=== PATIENT | male | born 1940 | race Caucasian/White ===

== ENCOUNTER 2017-02-05 18:10 | Inpatient (IN) | payer MEDICARE, OTHER ==
[~2017-02-05] VITALS: Ht 157.4 cm; Wt 79.8 kg
--- NOTE | ~2017-02-05 | PR ---
[place], [place] PROGRESS NOTE [id number] #: [id number] ROOM: 314 DOCTOR: Rohan COPE,AMY BIRTHDATE: [birth year] DOS: 02/10/2017 The patient seen and spoke with the staff. Per staff, the patient is pleasantly confused, wanders all day. No behavioral problems or issues. Took his medication and slept all night. The patient as mentioned earlier was wandering. He told me that he needs to go to work. 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 When I told him that this is Saturday, he then said that he has to take his and take her to the store. He then also talked about losing his car [employer] and losing his wallet. The patient was redirectable, but definitely he was confused, not aware of his surroundings and repetitive about the same questions and issues. He is taking his medication regularly and did not have any side effect from the medication. MENTAL STATUS EXAMINATION: The patient was pleasant and cooperative. He was alert, but not oriented to day, date, month or the year. He described his mood as "good." Affect was broad range. Thought processes with confabulation. He denied auditory or visual hallucination. No delusion or paranoia noted. He denied suicidal ideation, intent or plan. He also denied homicidal ideation, intent or plan. Insight and judgment impaired. ASSESSMENT: 1. Alzheimer dementia with behavioral disturbances. 2. Dementia with delusion. PLAN: 1. Continue current medication and care. 2. Continue redirection. 3. Supportive care. AMY COPE MD CM:SHANT [id number] Rohan COPE 02/11/17 0105 interface
--- NOTE | ~2017-02-05 | PR ---
[place], [place] PROGRESS NOTE NAME: [facility] [id number] UN[facility] #: [id number] ROOM: 314 DOCTOR: Rohan COPE,AMY BIRTHDATE: [birth year] DOS: 02/13/2017 PSYCHIATRIC PROGRESS NOTE SUBJECTIVE: The patient seen and spoke with the staff. Per staff the patient is doing well. No p.r.n. last night, slept well, easily redirectable. The patient was pleasant, cooperative. He was in the day area. His and daughter were visiting. He was playing cards with them. He reported doing well. Denied any side effects from the medication. Does not look to be in any distress. He is pleasantly confused and forgetful. MENTAL STATUS EXAMINATION: The patient was pleasant, cooperative, described his mood as "fine." Affect, mood congruent. Thought processes with confabulation. He denied auditory or visual hallucination. No delusion or paranoia noted. He denied suicidal ideation, intent or plan. He also denied homicidal ideation, intent or plan. Insight and judgment impaired. ASSESSMENT: 1. Dementia with behavioral disturbances. 2. Dementia with delusion. PLAN: 1. Continue current medication and care. 2. Continue redirection. 3. Supportive care. AMY COPE MD CM:SHANT 55 26 Rohan COPE 02/14/171826 interface
--- NOTE | ~2017-02-05 | PR ---
[place], [place] PROGRESS NOTE NAME: JUSTIN MANLEY [facility] #: [id number] UNIT #: [id number] ROOM: 314 DOCTOR: Rohan COPE,AMY BIRTHDATE: [birth year] DOS: 02/08/2017 SUBJECTIVE: The patient seen and I spoke with the staff. Per staff, the patient was pleasant, cooperative, got agitated last night and was also combative last night. The patient was pleasant, cooperative. He asked me how I am doing. He was going in and out of different rooms. He actually followed me and came to the nursing station, but was redirectable. He is not aware of his surrounding and totally and pleasantly confused. He denied any side effect from the medication. He does not seem to be in any distress. MENTAL STATUS EXAMINATION: The patient was pleasant, cooperative. He was alert, but not oriented to day, date, month and year. Speech: Normal volume and tone. Described his mood as "fine." Affect, mood congruent. Thought processes with confabulation. Denied auditory or visual hallucination. No delusion or paranoia noted. Denies suicidal ideation, intent or plan. He also denied homicidal ideation, intent or plan. Insight and judgment impaired. ASSESSMENT: 1. Dementia with behavioral disturbances. 2. Dementia with delusion. PLAN: 1. Continue current medication. His Depakote was increased yesterday, we need to give some time to see how it is becoming effective. 2. Continued redirection. 3. Encourage activity and groups. AMY COPE MD CM:PNZOFIA 20 0 Rohan COPE 02/09/17150 interface
--- NOTE | ~2017-02-05 | PR ---
[place], [place] PROGRESS NOTE [id number] #: [id number] ROOM: 309 DOCTOR: Rohan COPE,AMY BIRTHDATE: [birth year] DOS: 02/16/2017 SUBJECTIVE: The patient seen and spoke with the staff. Per staff, the patient has slept only 3 hours. He walked on the hallway all night, but easily redirectable. No behavioral problems or issues. Med compliant. The patient was pleasant, cooperative. He was walking on the hallway. He said that he need to talk with me and pulled me aside to the interview room. He then said that he is not feeling good. He is feeling tired. When I told him that he did not sleep last night, he acknowledges and said that he probably need to sleep. He also then started talking about earache and asked me if I can examine him. I told him that I will call the medical team to come and look at his ear and make sure that nothing else is going on. MENTAL STATUS EXAMINATION: The patient was pleasantly confused gentleman, alert, not oriented to day, date, month, or year. Speech was normal volume and tone. Described his mood as "okay." Affect, mood congruent. Thought processes with confabulation. Denied auditory or visual hallucination. No delusion or paranoia noted. He denied any suicidal ideation, intent or plan. He also denied any homicidal ideation, intent or plan. Insight and judgment impaired. ASSESSMENT: 1. Alzheimer dementia with delusion. 2. Alzheimer dementia with behavioral disturbances. PLAN: 1. I will add Depakote 250 mg at 9:00 p.m. 2. Continue redirection. 3. Supportive care. AMY COPE MD CM:SHANT [phone] Rohan COPE 02/16/17 1256 interface
--- NOTE | ~2017-02-05 | PR ---
[place], [place] PROGRESS NOTE NAME: JUSTIN MANLEY [facility] #: [id number] UNIT #: [id number] ROOM: 315 DOCTOR: Rohan COPE,AMY BIRTHDATE: [birth year] DOS: 02/07/2017 SUBJECTIVE: The patient seen and spoke with the staff. Per staff, the patient got a p.r.n. Ativan at 9:15 p.m. He was irritable and angry, hard to redirect, but after he got the Ativan, he slept all through. The patient was pleasant and cooperative. He actually came from his room. He looks well groomed. He said that he is doing okay and says that he is enjoying his breakfast. He was totally unaware of the events that happened last night and also unaware of his surroundings. He is taking his medication regularly and did not have any side effect. MENTAL STATUS EXAMINATION: The patient was pleasant, cooperative. He was alert, but not oriented to day, date, month or the year or even place. He described his mood as "okay." Affect, mood congruent. Thought processes with confabulation. He denied auditory or visual hallucinations. No delusions or paranoia noted. He denied suicidal ideation, intent or plan. He also denies homicidal ideation, intent or plan. ASSESSMENT: 1. Dementia with behavioral disturbances 2. Dementia with delusion. PLAN: 1. Increase the Depakote to 500 mg twice a day. 2. Continue redirection. 3. Supportive care. AMY COPE MD CM:PNTRANS 99 Rohan COPE 02/08/1755 interface
--- NOTE | ~2017-02-05 | PR ---
[place], [place] PROGRESS NOTE [facility] [id number] #: [id number] ROOM: 314 DOCTOR: Rohan COPE,AMY BIRTHDATE: [birth year] DOS: 02/12/2017 SUBJECTIVE: The patient seen and spoke with the staff. Per staff, the patient received 2 peers last night, was combative, agitated, hard to redirect at times. The patient was in the day area. He was sleepy. He was in a chair. When I called his name, he got up and said "hi" and states that he is doing okay, but then dozed back to sleep again. MENTAL STATUS EXAMINATION: The patient was pleasant, cooperative, sleepy as he got stat medication last night. Reports doing okay. Denied auditory or visual hallucination. No overt delusion or paranoia noted. Denied suicidal ideation, intent or plan. He also denied homicidal ideation, intent or plan. ASSESSMENT: 1. Alzheimer dementia with delusion. 2. Dementia with behavioral disturbances. PLAN: 1. Continue current Abilify. 2. I will increase his bedtime Depakote to 500 mg. 3. Continue redirection. 4. Supportive care. AMY COPE MD CM:SHANT [id number] 1328 Rohan COPE 02/12/17 1328 interface
--- NOTE | ~2017-02-05 | PR ---
[place], [place] PROGRESS NOTE [id number] [facility] #: [id number] ROOM: 314 DOCTOR: Rohan COPE,AMY BIRTHDATE: [birth year] DOS: 02/14/2017 PSYCHIATRIC PROGRESS NOTE SUBJECTIVE: The patient seen and spoke with the staff. Per staff, the patient is doing well. Slept all night. No wandering out at night. Medication compliant. The patient was in his room, well groomed, said that he is doing fine. He is pleasantly confused. He was not in any distress. He denied any side effect from the medication. MENTAL STATUS EXAMINATION: The patient was pleasant, cooperative. He was alert, but not oriented to day, date, month or year. Speech was normal volume and tone. Described his mood as "okay." Affect, mood congruent. Thought processes with confabulation. He denied auditory or visual hallucination. No delusion or paranoia noted. He denied suicidal ideation, intent or plan. He also denied homicidal ideation, intent or plan. ASSESSMENT: 1. Alzheimer dementia with behavioral disturbances. 2. Alzheimer dementia with delusion. PLAN: 1. Continue current medication and care. 2. Continue redirection. 3. Discharge planning. AMY COPE MD CM:SHANT [id number] Rohan COPE 02/14/17 2308 interface
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
--- NOTE | ~2017-02-05 | PR ---
[place], [place] PROGRESS NOTE [facility]: [facility] [id number] UN[facility] #: [id number] ROOM: 314 DOCTOR: Rohan COPE,AMY BIRTHDATE: [birth year] DOS: 02/09/2017 SUBJECTIVE: The patient seen and spoke with staff. Per staff, the patient was agitated last night and going from room to room, but was redirectable. He did not get any p.r.n., but then fell asleep after multiple redirection. The patient was pleasant, cooperative. He was confused. He gave me his address multiple times. He wanted to go home. He still is going from room to room. When I told him to sit and relax, he went back and then came back up again. MENTAL STATUS EXAMINATION: The patient was pleasant, cooperative, somewhat restless. Described his mood as "____ affect". Affect, mood congruent. Thought processes with confabulation. He denied auditory or visual hallucination. No delusion or paranoia noted. He denied any suicidal ideation, intent or plan. He also denied any homicidal ideation, intent or plan. Insight and judgment impaired. ASSESSMENT: Alzheimer dementia with behavioral disturbances. PLAN: 1. Continue current medication. 2. Continue redirection. 3. Supportive care. AMY COPE MD CM:PNZOFIA 0912 1147 Rohan COPE 02/09/17 2840 interface
--- NOTE | ~2017-02-05 | PR ---
[place], [place] PROGRESS NOTE [id number] UN[facility] #: [id number] ROOM: 314 DOCTOR: Rohan COPE,AMY BIRTHDATE: [birth year] DOS: 02/11/2017 SUBJECTIVE: The patient seen and spoke with the staff. Per staff, the patient received multiple PRNs last night because he was going in and out of the patients' rooms, especially the women's room, touching them also in their hair and also in their faces. He was hard to redirect at times. The patient was pleasant, cooperative. He seems pretty happy as his and daughter came. I discussed with the family about the treatment plan and discussed the risk of dementia, the prognosis and the treatment. They verbalized understanding. The patient reports doing well. He agreed to stay a couple of days. He is pleasantly confused. Denied depressed mood or helplessness. Denied any other neurologic signs or symptoms of depression. Denied psychosis, sandy, or hypomania. MENTAL STATUS EXAMINATION: The patient was pleasant, cooperative. Described his mood as "okay." Affect, mood congruent. Thought process is with confabulation. He denied auditory or visual hallucination. No delusion or paranoia noted. He denied suicidal ideation, intent or plan. He also denied homicidal ideation, intent or plan. Insight and judgment impaired. ASSESSMENT: Alzheimer dementia with behavioral disturbances. PLAN: 1. Continue current medication. 2. Continue redirection. 3. Supportive care. AMY COPE MD CM:PNTRANS 1925 1301 Rohan COPE 02/12/17 1301 interface
--- NOTE | ~2017-02-05 | PR ---
[place], [place] PROGRESS NOTE [id number] UN[facility] #: [id number] ROOM: 309 DOCTOR: Rohan COPE,AMY BIRTHDATE: [birth year] DOS: 02/15/2017 SUBJECTIVE: The patient seen and spoke with the staff. Per staff, the patient was up all night, in and out of people's room, but easily redirectable, did not require any p.r.n. Eventually, he falls asleep around 3:30-4:00 a.m. in the morning. The patient was pleasant, cooperative. He was in the day area surrounded by his family. He looks bright and happy, not in any acute distress. Reports doing well. Pleasantly confused. MENTAL STATUS EXAMINATION: The patient was pleasant and cooperative. He was alert, but not oriented to day, date, month and year. Speech is normal volume and tone. Described her mood as mood as "good." Affect, mood congruent. Thought processes with confabulation. Denied auditory or visual hallucination. No delusion or paranoia noted. Denied suicidal ideation, intent or plan. He also denied homicidal ideation, intent or plan. Insight and judgment impaired. ASSESSMENT: Dementia with behavioral disturbances. PLAN: 1. Continue current medication and care. 2. Continue redirection. 3. Supportive care. AMY COPE MD CM:SHANT [phone] Rohan COPE 02/16/17 0524 interface
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
--- NOTE | ~2017-02-05 | PR ---
[place], [place] PROGRESS NOTE NAME: [id number] #: [id number] ROOM: 309 DOCTOR: Rohan COPE,AMY BIRTHDATE: [birth year] DOS: 02/17/2017 HISTORY OF PRESENT ILLNESS: The patient seen and spoke with the staff. Per staff, the patient was slept only 6 hours, broken sleep and he was rude and irritated towards his , so the family had to cut short the visit. He is compliant with his medication. The patient was pleasant, cooperative as usual. When he saw me, he said good morning in [place], not able to recall the event that happened yesterday. Does not seem to be in any distress. MENTAL STATUS EXAMINATION: The patient was pleasant, cooperative, pleasantly confused. Described his mood as "good." Affect, mood congruent. Thought processes is with confabulation. Denied auditory or visual hallucination. No delusion or paranoia noted. Denied suicidal ideation, intent or plan. He also denied homicidal ideation, intent or plan. Insight and judgment impaired. ASSESSMENT: 1. Alzheimer dementia with delusion. 2. Possible dementia with behavioral disturbances. PLAN: 1. We will increase his 9:00 p.m. Depakote to 500 mg. 2. Continue other medication. 3. We will check the Depakote level, CBC, differential and CMP tomorrow. 4. Continue redirection. AMY COPE MD CM:SHANT [phone] Rohan COPE 02/17/17 1025 interface
[2017-02-05] MEDS ORDERED: NAMENDA10 MG PO (18:24)
[2017-02-05] MEDS ORDERED: ARICEPT10 M1 PO (18:25)
[2017-02-05] MEDS ORDERED: LUMIGAN50 DRP OU (18:26)
--- NOTE | 2017-02-05 20:01 | NUR ---
DR. COPE CALLED AND REVIEWED PRN MEDICATIONS. NEW ORDER FOR ATIVAN 1MG PO/IM Q 4 HOURS PRN AND HALDOL 5MG PO/IM Q 8 HOURS PRN
--- NOTE | 2017-02-05 21:11 | NUR ---
THIS NURSE SPOKE TO RENNY AND DAUGHTERS MICHAELLE AND BERNIE BEFORE PT CAME ON THE UNIT. FAMILY CONCERS THAT PT WILL HAVE INCREASED AGITATION AND COMBATIVE BEHAVIOR WHEN TIRED OR WAKING UP IN A NEW ENVIROMENT. FAMILY LEFT PHONE NUMBERS WITH THIS NURSE IN CASE OF EMERGENCY
--- NOTE | 2017-02-05 21:13 | NUR ---
JUSTIN MANLEY a 76 year old M admitted via stretcher from the ADMITTING as a emergency 72 hr. hold admission. Arrived on unit at . ALLERGIES: . Vital signs are: 98.2-61-18 158/86. Admitted under the services of Dr. RIP SHERIFFGARRETT. A search was conducted and hazardous articles were removed. Client was oriented to the unit. JACQUES JACOBSEN
[2017-02-05] MEDS ORDERED: ZOCOR20 MG PO (21:31)
[2017-02-05] MEDS ORDERED: SPIRIVA18 MCG PO (21:31)
--- NOTE | 2017-02-05 21:42 | NUR ---
DR. NG CALLED AND PT PUT UNDER DR. YORK FOR MEDICAL MANAGEMENT
[2017-02-05 22:00] VITALS: BP 158/86
--- NOTE | 2017-02-05 22:42 | NUR ---
FOUR BULLETS AND TWO POCKET KNIVES FOUND ON PT WHILE EMPTYING POCKETS FROM CLOTHING PT WAS WEARING. NURSING CULINARY ARTS INSTRUCTOR UPDATED. SECURITY CALLED AND TOOK BULLETS. DR. CORBIN UPDATED. PT RESTING IN BED AT THIS TIME.
--- NOTE | 2017-02-06 03:25 | NUR ---
DR. NG ON UNIT TO SEE PT. PT UNABLE TO ANSWER QUESTIONS AT THIS TIME AND RECEIVED HALDOL AND ATIVAN PRIOR TO DISCHARGE FROM [facility] DUE TO PT AGGRESSIVE BEHAVIOR
--- NOTE | 2017-02-06 04:32 | NUR ---
24 HR chart check completed.
--- NOTE | 2017-02-06 05:22 | NUR ---
PT UP AMBULATING IN ROOM AND UNABLE TO SLEEP. PT TOILETED X 2 AND CONTINENT OF BLADDER. PT SLEEPING BETWEEN 5-6 HOURS. PT HAVE CONFUSED CONVERSATION WITH STAFF. PT NOT ABLE TO REMEMBER IF HE HAS CHILDREN. FLUIDS PROVIDED.
--- NOTE | 2017-02-06 06:50 | NUR ---
ATTEMPTED TO OBTAIN URINE SPECIMEN TO BE SENT TO LAB THROUGHOUT SHIFT. URINAL OFFERED IN ATTEMPT TO COLLECT URINE.
[2017-02-06 07:11] LABS: THYROID STIM HORMONE (HS) 0.98 uIU/ml (0.358-4.75)
[2017-02-06 08:11] VITALS: BP 140/90
[2017-02-06 08:29] LABS: VITAMIN D, 25-HYDROXY 30.9 ng/mL (30-100)
--- NOTE | 2017-02-06 10:51 | NUR ---
Treatment Team was held to discuss care with the following present: Dr. Tenorio (phone), RN,AT,SW, and Director.
--- NOTE | 2017-02-06 11:23 | NUR ---
PT was in attendence of RT group this morning. PT worried about going home, his car running, and his ride coming. PT was hard to redirect. PT did minimully participate when prompted to do so. PT shared leisure interest of playing the accordian with group
--- NOTE | 2017-02-06 14:30 | NUR ---
SW completed psychosocial assessment with E[facility] and Dtr Caroline. has [employer] and willlook for papers today and bring this evening if found. SW asked Family to consider guardianship due to being only agent on [employer]. does nto want to go against Pt's wishes of not placing him in NH. SW advised Family to begin looking at locked dementia unit at ID or locked dementia unit at Assisted Living depending on what they can afford. Family alli begin looking for facilities. Moe will submit the [facility] for placement.
--- NOTE | 2017-02-06 15:54 | NUR ---
Patient participated during recreation therapy group with 1:1 by staff. Patient was much more focused this afternoon on activity that kept him busy. Patient appropraitely following along with bingo numbers and not talking about going home during group time. After group ended, he began wandering halls again and wanting to go home.
--- NOTE | 2017-02-06 17:18 | NUR ---
PATIENT IS ALERT AND ORIENTED TO SELF ONLY. NO SI OR HI NOTED. NO HALLUCINATIONS OR DELUSIONS NOTED. PATIENT IS VERY CONFUSED THROUGHOUT ENTIRE SHIFT. TRYING TO GET OUT OF DOORS AND STATING "I NEED TO GET OUT OF HERE. I DONT KNOW WHY I AM HERE." EXPLAINED TO PATIENT REASON FOR ADMISSION. PATIENT REDIRECTED FOR A FEW MINUTES AT A TIME AND PROCESS HAD TO REPEAT. APPETITE REMAINS GOOD. PATIENT IS CONTINENT OF BOWEL AND BLADDER. NO PAIN REPORTED THIS SHIFT. PATIENT DID PARTICIPATE IN GROUP AND ACTIVITY THERAPY. PLAN IS TO CONTINUE REDIRECTION WHEN NECESSARY. MONITOR FOR INCREASED AGITATION.
[2017-02-06 20:00] VITALS: BP 140/82
--- NOTE | 2017-02-06 22:00 | NUR ---
DR COPE ON UNIT TO SEE PATIENT. NEW ORDER FOR ABILIFY 5MG QHS. DISCUSSED WITH DR. COPE TO SEE IF ARICEPT CAN BE DISCONTINUED AND EXELON STARTED. THIS NURSE EXPLAINED FAMILY WAS AGREEABLE IF MEDICATIONS WERE CHANGED. DR. COPE STATED "NO, I NOT GOING TO DISCONTINUE THE ARICEPT AND START EXELON". PATIENT MEDICATED WITH ATIVAN 1MG PO DUE TO INCREASED ANXIETY AND DIFFICULTY TO REDIRECT. MEDICATION WITH EFFECTIVE RESULTS. PATIENT ABLE TO SIT DOWN FOR SHORT PERIODS OF TIME
--- NOTE | 2017-02-06 23:45 | NUR ---
PATIENT AGITATED AND DIFFICULT TO REDIRECT OUT OF PATIENT'S ROOMS. MEDICATED WITH HALDOL 5MG IM. MEDICATION WITH EFFECTIVE RESULTS. PATIENT SITTING DOWN AND RESTING AT THIS TIME.
--- NOTE | 2017-02-07 02:29 | NUR ---
24 HR chart check completed.
--- NOTE | 2017-02-07 06:32 | NUR ---
PATIENT RESTING AT THIS TIME. PATIENT SLEPT 5-6 HOURS THIS SHIFT. VOICES NO COMPLAINTS OF PAIN OR DISCOMFORT AT THIS TIME
[2017-02-07 08:03] VITALS: BP 138/83
--- NOTE | 2017-02-07 11:36 | NUR ---
Patient refused to participate during recreation therapy groups despite several encouragement attempts.
--- NOTE | 2017-02-07 13:20 | NUR ---
FAMILY REFUSED AEROSOL RX, STATED THEY ARE NOT NEEDED.
--- NOTE | 2017-02-07 15:23 | NUR ---
SWS faxed Pas[facility] today.
--- NOTE | 2017-02-07 15:43 | NUR ---
PATIENT IS ALERT AND ORIENTED TO PERSON WITH CONFUSION. RESPIRATIONS ARE EASY, NON LABORED ON ROOM AIR. SHORT/DIRECTOR OF INCOME TAX MEMORY DEFICITS NOTED. MOOD IS ANXIOUS AT TIMES, AMBULATES WITH STEADY GAIT. ASSISTANCE NEEDED WITH DRESSING AND GROOMING. CONTINENT OF BOWEL AND BLADDER. MEAL INTAKES ARE GOOD WITH ADEQUATE FLUIDS. THOUGHT PROCESS IS CONFUSED, PREOCCUPIED WITH WANTING TO GO HOME. PATIENT PACES FREQUENTLY IN THE HALLWAY, TRYING TO OPEN DOORS. 1:1 AND REDIRECTION EFFECTIVE. PATIENT DENIES ANY PAIN OR DISCOMFORT, HI/SI. DENIES ANY HALLUCINATIONS OR DELSIONS. PATIENT IS CALM, PARTICIPATES IN GROUP ACTIVITIES. Q 15 MINUTE SAFETY CHECKS MAINTAINED. PLAN IS TO PROVIDED 1:1 AND REDIRECTION NEEDED WHEN BECOMING ANXIOUS AND WANTING TO GO HOME.
--- NOTE | 2017-02-07 15:58 | NUR ---
Patient participated during the majority of the recreation therapy group. Patient played bingo indpependently and stayed on task. After the 3rd game patient became restless and wanting to go home, somewhat difficult to redirect.
--- NOTE | 2017-02-07 19:28 | NUR ---
TREATMENT TEAM WAS HELD TO DISCUSS CARE WITH THE FOLLOWING: DR. COPE (PHONE), RN, SW & DIRECTOR.
[2017-02-07 20:10] VITALS: BP 100/69
--- NOTE | 2017-02-07 20:31 | NUR ---
SW ASKED SEASONAL TAX PREPARER TO MAKE REFERRALS TO [facility].
--- NOTE | 2017-02-07 20:32 | NUR ---
HAMMAD RECEIVED FROM SHAYLEE AT [facility] ([phone]) TO RETURN CALL REGARDING PAS[facility] THAT WAS FAXED.
--- NOTE | 2017-02-08 01:20 | NUR ---
PT CONFUSED, IRRITABLE. CONVINCED THE UNIT IS HIS HOME AND WE ARE HIDING HIS FROM HIM. MAKING THREATS TO STAFF "IF YOU KEEP TELLING ME WHAT TO DO AND TRESPASSING IN MY HOME, IT'S NOT GONNA BE PRETTY FOR YOU." STATES "I KNOW THE [employer] AND THIS IS GETTING OUT OF HAND." NURSE UNABLE TO REDIRECT/REORIENT. PT FREQUENTLY ATTEMPTING TO WANDER IN OTHER PATIENT'S ROOMS. PRN ATIVAN ADMINISTERED IM D/T INABILITY TO TAKE ORAL MEDICATION AT THIS TIME. PT TOLERATED ADMINISTRATION VERY WELL. WILL CONTINUE TO MONITOR FOR MEDICATION EFFECTIVENESS.
--- NOTE | 2017-02-08 02:29 | NUR ---
PT QUIETLY RESTING IN CHAIR ACROSS FROM NURSES STATION. MEDICATION HAS BEEN EFFECTIVE AT THIS TIME.
--- NOTE | 2017-02-08 02:38 | NUR ---
24HR CHART CHECKS COMPLETE
--- NOTE | 2017-02-08 05:31 | NUR ---
PT SLEPT >4HRS WITH MANY INTERRUPTIONS THROUGHOUT THE SHIFT. PT AWOKE AROUND 1 AM WITH THE FIXED DELUSION THAT THE UNIT WAS HIS HOME. AGITATION AND PHYSICAL POSTURING NOTED. PT HAS AWOKE MUCH MORE PLEASANT WITH NO RECOLLECTION OF THE PREVIOUS DELUSIONAL THOUGHT PROCESS. REFER TO [facility] FOR ADDITIONAL INFO.
[2017-02-08 07:52] VITALS: BP 142/83
--- NOTE | 2017-02-08 11:42 | NUR ---
Patient displaying restless/wandering behavior throughout the morning recreaiton group sessions. Patient did try to follow along to group exercise while "teaching" the group numbers in taiwanese--this kept patient focused on activity. Patient difficult to redirect at times but no anger/agressive behaviors displayed.
--- NOTE | 2017-02-08 15:53 | NUR ---
Patient much more easy to redirect towards group activity. Patient talking about english culture with group and teaching group english words. Patient displaying no signs of anger/agression during interactions with peers or staff.
--- NOTE | 2017-02-08 16:21 | NUR ---
Treatment Team was held to discuss care with the following: Dr. Tenorio (phone), RN, SW, AT, and Director.
--- NOTE | 2017-02-08 16:45 | NUR ---
VM received from Lee Trinh that Pt can be accpeted if Family approves on locked dementia init.
--- NOTE | 2017-02-08 16:48 | NUR ---
Sw requested that Winding Department Supervisor faxed referrals per family request to [facility].
--- NOTE | 2017-02-08 16:49 | NUR ---
HAMMAD from [facility] Rosa reproting that there is not openings on their locked uninta nd will put Pt on waiting list. SW returned call. Rosa will also put Pt on [place] waiting list.
--- NOTE | 2017-02-08 18:16 | NUR ---
PATIENT REMAINS ALERT AND ORIENTED X1. MOOD IS LABILE AND AFFECT IS FLAT. NO SI OR HI NOTED. NO HALLUCINATIONS OR DELUSIONS NOTED. PATIENT CONTINUES TO BE VERY CONFUSED. PACING AND STATING "I HAVE TO GO GET MY CAR". PLAN IS TO CONTINUE REDIRECTION WHEN NEEDED AND DISCHARGE WHEN STABLE. APPETITE REMAINS GOOD. PATIENT IS CONTINENT OF BOWEL AND BLADDER. MEDICATION COMPLIANT WITHOUT DIFFICULTY. PATIENT PARTICIPATED IN GROUP AND ACTIVITY THERAPY. NO PAIN REPORTED THIS SHIFT.
[2017-02-08 20:00] VITALS: BP 160/98
--- NOTE | 2017-02-08 21:25 | NUR ---
SW RECEIVED PASRR RESULTS AND PT APPROVED FOR NH PLACEMENT. COPY ON CHART.
--- NOTE | 2017-02-08 21:38 | NUR ---
PT INCREASE IN CONFUSION. WANDERING INTO OTHER PATIENT ROOMS LOOKING FOR . PARANOID DELUSION PRESENT THAT STAFF IS TRESPASSING AT HIS HOME. NURSE HANDED PT MEDICINE CUP, PT GRASPED NURSES HAND AND SQUOZE. PT THREATENING TO STRIKE STAFF. NURSE ABLE TO DIFUSE SITUATION AT THIS MOMENT. UNABLE TO REDIRECT/REORIENT. CONTINUE TO MONITOR FOR FURTHER INCREASES IN AGITATION/AGGRESSION.
--- NOTE | 2017-02-09 02:46 | NUR ---
24HR CHART CHECKS COMPLETE
--- NOTE | 2017-02-09 06:08 | NUR ---
PT SLEPT >7HRS WITH 3 INTERRUPTIONS. AFTER PATIENT'S AGITATED EPISODE, HE SLEPT FOR 5 SOLID HOURS, AWAKING WITH A PLEASANT DEMEANOR. REFER TO FLOWSHEET FOR ADDITIONAL INFO
[2017-02-09 08:23] VITALS: BP 151/80
--- NOTE | 2017-02-09 08:49 | NUR ---
PRN ATIVAN 1 MG PO GIVEN FOR INCREASED RESTLESSNESS, AGGITAITON PT TOOK WIT NO PROBLEM
--- NOTE | 2017-02-09 11:21 | NUR ---
CALLED FOR AN UPDATE. STATED SHE WANTS HIM OUT OF HIS WORK SHIRT BECAUSE HE THINKS HE IS AT WORK, I RECOMMENED FOR HER TO BRING IN ANOTHER SHIRT AND TAKE THIS ONE HOME. SHE AGREED. STATED SHE WILL BE IN AT 1230 P FOR VISITING HOURS.
--- NOTE | 2017-02-09 14:26 | NUR ---
24 HR chart check completed. B; CONFUSED, PACING, HAS BEEN REDIRECTABLE,NOT COMBATIVE, I: REDIRECTION NEEDED, THERAPEUTIC COMMUNICATION, 1;1, POSITIVE REASSURANCE R; " I WANNA GO HOME" P; MED COMPLIANCE, DECREASE EVENING TIME BEHAVIORS,
[2017-02-09 19:50] VITALS: BP 122/76
--- NOTE | 2017-02-09 21:23 | NUR ---
CONTINUES TO WANDER HALLWAYS AND INTO PEERS ROOM. REDIRECTED TO HIS ROOM WITH MINIMAL ASSISTANCE
--- NOTE | 2017-02-10 00:29 | NUR ---
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 MEDICATE PER DOCTORS ORDERS. GROUP THERAPY AND NEW COPING TECHNIQUES P- ORIENTED TO SELF AND PLACE. LEARN NEW COPING TECHNIQUES, NO VIOLENT OUTBURST P#2- FALL RISK I- KEEP WALKWAYS CLEAR. MONITOR FOR CHANGE IN GAIT P- NO FALLS
--- NOTE | 2017-02-10 01:50 | NUR ---
HAS BEEN RESTING WELL PAST 11PM
--- NOTE | 2017-02-10 04:45 | NUR ---
24 HR chart check completed.
--- NOTE | 2017-02-10 06:24 | NUR ---
UP ONCE TO VOID TONIGHT. SLEPT WELL PAST 2230PM
[2017-02-10 08:38] VITALS: BP 142/74
--- NOTE | 2017-02-10 10:55 | NUR ---
PATIENT COMPLAINED OF HEART BURN, PRN MAALOX 30ML GIVEN PO AT THIS TIME.
--- NOTE | 2017-02-10 11:44 | NUR ---
24 HR chart check completed. B: INCONTROL, LESS SUBDUED, CONFUSED, REPEATITIVE AT TIMES, MED COMPLIANT, NOT COMBATIVE OR AGGRESSIVE, I: REDIRECTION NEEDED, 1;1, THERAPEUTIC COMMUNICATION, POSITIVE REASSURANCE, REALITY ORIENTATION NEEDED R" WHEN AM I GETTING HOME" P; REDIRECTION NEEDED, MED COMPLIANT,
--- NOTE | 2017-02-10 17:50 | NUR ---
PT GETTING HARDER TO REDIRECT. REPEATITIVE ABOUT LEAVING KEEP GOING DOWN TO THE DOORS AND GETTING IRRITATED. WITH INCREASED RESTLESSNESS AND ANXIETY PO 1 MG ATIVAN GIVEN
[2017-02-10 20:24] VITALS: BP 145/86
--- NOTE | 2017-02-10 20:45 | NUR ---
PATIENT AMBULATING IN AND OUT OF ROOMS TOUCHING ON THE WOMEN'S HAIR. PATIENT CONFUSED AND BELIEVED HE WAS AT WORK. NURSING STAFF ATTEMPTED TO REDIRECT PATIENT FROM TOUCHING OTHER PATIENTS, BUT PATIENT GOT UPSET WITH STAFF. ATTEMTPED TO REORIENT PATIENT TO PLACE AND TIME, BUT PATIENT WAS VERY AGITATED. MEDICATED WITH HALDOL 5MG PO WITH EFFECTIVE RESULTS. THIS NURSE AND NURSING STAFF AMBULATING IN HALLWAY WITH PATIENT FOR A WHILE UNTIL PATIENT LESS AGITATED. PATIENT'S CALLED AND INFORMED THIS NURSE THAT SHE WAS NOT ABLE TO MAKE VISITATION HOURS TODAY, BUT WILL BE IN [place]
--- NOTE | 2017-02-10 23:11 | NUR ---
PATIENT ATTEMPTED TO LAY IN BED, BUT BEGAN TO GET AGITATED. PATIENT VERBALLY AGGRESSIVE WITH STAFF AND GETTING UPSET WITH STAFF WHEN ATTEMPTING TO REDIRECT PATIENT OUT OF OTHER PATIENT'S ROOMS. PATIENT MEDICATED WITH ATIVAN 1MG IM WITH EFFECTIVE RESULT. PATIENT SITTING IN CHAIR AT THIS TIME. VOICES NO COMPLAINTS OF PAIN OR DISCOMFORT AT THIS TIME
--- NOTE | 2017-02-11 02:39 | NUR ---
24 HR chart check completed.
--- NOTE | 2017-02-11 06:38 | NUR ---
PATIENT RESTING IN BED. PATIENT SLEPT BETWEEN SIX TO SEVEN HOURS THROUGHTOUT SHIFT. VOICES NO COMPLAINTS FO DISCOMFORT OR PAIN AT THIS TIME
--- NOTE | 2017-02-11 08:54 | NUR ---
MCKAYLA FORD CPN ON UNIT TO SEE PATIENT.
[2017-02-11 10:30] VITALS: BP 104/60
--- NOTE | 2017-02-11 11:35 | NUR ---
TREATMENT TEAM WAS HELD TO DISCUSS CARE WITH THE FOLLOWING: DR. COPE (PHONE), RN,SW, AT.
--- NOTE | 2017-02-11 11:45 | NUR ---
CALL RECEIVED FROM [facility] INQUIRING IF PT FAMILY MADE A DECISION ABOUT FACILITY ADMISSION. SUHAS INFORMED HIM THAT NO OTHER FACILITY HAS ACCEPTED PT OR SHOWED INTEREST. FACILITY IS CLOSE TO WHERE LIVES. АЛЕКСАНДР STATED THAT FAMILY CAME AND TOURED FACILITY AND DID NOT LIKE THAT THE DOOR UNLOCKS AFTER 15 SECONDS OF STEADY PRESSURE. SUHAS SAID THAT IS STANDARD FOR ALL FACILITIES. АЛЕКСАНДР SAID YES. SUHAS INFORMED АЛЕКСАНДР THAT [facility] WAS BACK AND IT APPROVED PT'S ADMISSION TO [place]. SUHAS WILL FAX A COPY TO FACILITY.
--- NOTE | 2017-02-11 12:45 | NUR ---
PT didnt attend RT group today. PT wandering in and out of group. PT did not reminisce or have opinions on any topic of conversation when PT was in the room.
--- NOTE | 2017-02-11 15:00 | NUR ---
PATIENT IS ALERT TO PERSON WITH CONFUSION, ABLE TO FOLLOW DIRECTION. RESPIRATIONS ARE EASY, NON-LABORED ON ROOM AIR. 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 PATIENT IS CALM AND INTERACTIVE WITH OTHER PATIENTS AND STAFF. DENIES ANY HALLUCINATIONS/DELUSION, HI/SI. COMPLAINT WITH MEDICATIONS. AMBULATES THROUGHTOUT THE HALLWAY WITH STEADY GAIT. 1 PERSON ASSIST WITH ACTIVITIES OF DAILY LIVING. REQUIRES CUEING AT TIMES TO FIND HIS ROOM AND BATHROOM FOR TOILETING NEEDS. APPETITE IS FAIR WITH ENCOURAGEMENT WITH FLUIDS. CONTINENT OF BOWEL AND BLADDER. Q 15 MINUTE SAFETY CHECKS MAINTAINED. DENIES ANY PAIN OR DISCOMFORT. PLAN IS TO REDIRECT NEEDED WHEN SEEKING EXIT OR INTRUSIVE WITH OTHER PATIENTS.
--- NOTE | 2017-02-11 15:55 | NUR ---
PT did not attend RT group this afternoon. PT would come into group aned leave again. PT continued this through out Group
[2017-02-11 20:00] VITALS: BP 112/72
--- NOTE | 2017-02-11 21:30 | NUR ---
PATIENT GETTING AGITATED AND INTRUSIVE WITH OTHER PATIENTS. PATIENT MEDICATED WITH ATIVAN 1MG PO WITH EFFECTIVE RESULTS. PATIENT MEDICATION COMPLIANT. VOICES NO COMPLAINTS OF PAIN OR DISCOMFORT AT THIS TIME.
--- NOTE | 2017-02-11 23:52 | NUR ---
PATIENT REDIRECTED OUT OF ROOM DUE TO ROOM MATE ACCUSING PATIENT OF URINATING ON HIS BED. NURSING STAFF FOUND THAT PATIENT DID NOT URINATE ON HIS BED, BUT DID URINATE ON FLOOR AT FOOT OF ROOMMATES BED. PATIENT AMBULATED UP AND DOWN HALLWAY AND IS SITTING IN CHAIR TO REST LEGS AT THIS TIME
--- NOTE | 2017-02-12 01:11 | NUR ---
24 HR chart check completed.
--- NOTE | 2017-02-12 01:29 | NUR ---
PATIENT AGGRESSIVE WITH NURSING STAFF AND NO ABLE TO REDIRECT. PATIENT MEDICATED WITH ATIVAN 1MG WITH EFFECTIVE RESULTS. RESTING IN CHAIR AT THIS TIME
[2017-02-12 06:09] LABS: BASO # 0.1 10*3/uL (0.0-0.1); BASO % 0.7 % (0.0-1.0); EOS # 0.1 10*3/uL (0.0-0.4); HEMATOCRIT 43.7 % (42.0-52.0); HEMOGLOBIN 14.6 g/dl (14.0-18.0); LYMPH # 2.9 10*3/uL (1.3-4.4); LYMPH % 41.2 % (27.0-41.0); MEAN CELL VOLUME 98.2 fl (80.0-94.0); MEAN CORPUSCULAR HGB 32.8 pg (27.0-31.0); MEAN CORPUSCULAR HGB CONC 33.4 g/dl (33.0-37.0); MEAN PLATELET VOLUME 9.9 fl (9.6-12.3); MONO # 0.6 10*3/uL (0.1-1.0); MONO % 8.6 % (3.0-9.0); NEUT # 3.4 10*3/uL (2.3-7.9); NEUT % 48.2 % (47.0-73.0); PLATELET COUNT AUTOMATED 200 10*3/uL (130-400); RED BLOOD COUNT 4.45 10*6/uL (4.50-5.90); RED CELL DISTRI WIDTH 12.3 % (0-14.5); WHITE BLOOD COUNT 7.1 10*3/uL (4.8-10.8)
[2017-02-12 06:36] LABS: ALBUMIN 3.5 gm/dl (3.1-4.5); BUN 15 mg/dl (7-24); CHLORIDE 102 mmol/L (98-107); CREATININE 0.93 mg/dL (0.70-1.30); POTASSIUM 3.8 mmol/L (3.5-5.1); SGOT/AST 30 IU/L (3-35); SGPT/ALT 35 U/L (12-78); SODIUM 138 mmol/L (136-145)
--- NOTE | 2017-02-12 06:36 | NUR ---
PATIENT RESTING IN CHAIR. PATIENT SLEPT 4-5 HOURS THROUGHTOUT SHIFT. PATIENT HEIGHT AND WEIGHT OBTAINED
[2017-02-12 06:39] LABS: ALKALINE PHOSPHATASE 53 U/L (45-117); TOTAL PROTEIN 7.4 gm/dL (6.4-8.2)
[2017-02-12 08:05] VITALS: BP 126/72
--- NOTE | 2017-02-12 11:14 | NUR ---
MCKAYLA FORD,GABRIELLE IN TO SEE PATIENT.
--- NOTE | 2017-02-12 13:24 | NUR ---
PATIENT COMPLAINED OF HAVING A HEADACHE, PRN TYLENOL 650MG PO GIVEN AT THIS TIME.
--- NOTE | 2017-02-12 13:29 | NUR ---
PT did attend RT group this morning but did not participate. PT sat quietly watching everyone. When prompted to join in PT just mumbbled and shook his head no.
--- NOTE | 2017-02-12 15:06 | NUR ---
PATIENT IS ALERT AND ORIENT TO PERSON ONLY WITH CONFUSION. RESPIRATIONS ARE EASY, NON-LABORED ON ROOM AIR. MOOD IS HOPELESS/HELPLESS, PLEASANT DEMEANOR. AMBULATORY WITH STEADY GAIT, ATTEMPTS TO EXIT AND TRIES TO OPEN LOCKED DOOR; REDIRECTED NEEDED AND EFFECTIVE. THOUGHT PROCESS IS CONFUSED. DENIES ANY HALLUCINATIONS, DELUSION, AND HI/SI. PATIENT IS INTERACTIVE, CALM AND PARTICIPATES IN GROUP SESSIONS. APPETITE IS GOOD WITH ADEQUATE FLUIDS. PATIENT IS CONTINENT OF BOWEL AND BLADDER. REQUIRES 1 PERSON ASSIST WITH ACTIVITIES OF DAILY LIVING AND CUEING NEEDED. DENIES ANY PAIN OR DISCOMFORT AT THIS TIME. Q 15 MINUTE SAFETY CHECKS MAINTAINED. PLAN IS TO ENCOURAGE PATIENT TO PARTICIPATE IN GROUP SESSIONS, REDIRECT WHEN INCREASED PACING, EXIT SEEKING AND BEING INTRUSIVE.
--- NOTE | 2017-02-12 15:48 | NUR ---
PT did not attend Rt group this afternoon. PT did wander in and out of the room group was in but refussed to sit and join us
--- NOTE | 2017-02-12 18:24 | NUR ---
DR. COPE ON UNIT AND MET WITH SW. PT NOT READY FOR DISCHARGE. FAMILY LOOKING FOR OTHER PLACEMENT THAN [facility].
--- NOTE | 2017-02-12 18:25 | NUR ---
АЛЕКСАНДР FROM [facility] CALLED TO SEE IF FAMILY DECIDED ON PLACEMENT. SW INFORMED АЛЕКСАНДР THAT FAMILY HAS NOT FOUND [facility] YET. SUHAS WILL LET АЛЕКСАНДР KNOW WHEN DECISION IS MADE.
[2017-02-12 20:07] VITALS: BP 130/79
--- NOTE | 2017-02-13 03:53 | NUR ---
24 HR chart check completed.
--- NOTE | 2017-02-13 06:36 | NUR ---
PT SLEPT INTERMITTENTLY THROUGHOUT NIGHT FREQUENTLY AWAKEND CONFUSED. MUCH EASIER TO REDIRECT THAN ON PREVIOUS SHIFTS. NO PRN'S REQUIRED.SLEPT 5 HOURS THROUGHOUT NIGHT. AMBULATING HALLS CONFUSED BUT ABLE TO REORIENT TO PLACE AND TIME. MED COMPLIANT WITH OUT DIFFICULTY, SEE FLOW SHEET FOR SPECIFIC MONITORING.
[2017-02-13 08:00] VITALS: BP 143/85
--- NOTE | 2017-02-13 10:23 | NUR ---
MCKAYLA FORD, SANDRINE AT BEDSIDE TO ASSESS PATIENT. NNO.
--- NOTE | 2017-02-13 11:29 | NUR ---
Patient restless, wandering and difficult to redirect during recreation therapy groups this morning. Patient pleasant and confused. This staff attempted redirection and reminiscing with patient but at times was unsuccessful. Patient continuing to roam halls during group unable to be redirected towards task.
--- NOTE | 2017-02-13 13:46 | NUR ---
ALERT AND ORIENTED TO SELF ONLY, POOR ST/LT MEMORY. PLEASANTLY CONFUSED ALL SHIFT THUS FAR. MOOD HAS BEEN STABLE AND CALM. NO OVERT HALLUCINATIONS OR DELUSIONS NOTED. INTERACTING WELL WITH STAFF AND PEERS. WANDERS ABOUT THE UNIT ALL DAY CONFUSED, REQUIRING CONSTANT REDIRECTION. ELOPEMENT/WANDER PRECAUTIONS MAINTAINED. APPETITE GOOD FOR BREAKFAST AND LUNCH, TAKING FLUIDS WELL. MEDICATION COMPLIANT WITHOUT DIFFICULTY. REFUSED MIRALAX D/T INCREASED BM'S OVER THE LAST DAY. RESPIRATIONS EASY AND EVEN. NO COMBATIVE OR AGGRESSIVE BEHAVIORS NOTED. NO ACUTE DISTRESS NOTED.
--- NOTE | 2017-02-13 16:04 | NUR ---
PT did attend RT group. PT did not participate in the activity but joke and socialize with the other PTs and staff
--- NOTE | 2017-02-13 18:55 | NUR ---
TREATMENT TEAM WAS HELD TO DISCUSS CARE WITHT HE FOLLOWING: DR. Geronimo (PHONE), RNs, AT, SW, AND MEDICAL STUDENT.
--- NOTE | 2017-02-13 19:11 | NUR ---
SUHAS ATTMEPTED TO CALL CARMELO AT [facility] AND HE HAD SOMEONE IN OFFICE. SUHAS LEFT NAME AND NUMBER FOR RETURN CALL.
--- NOTE | 2017-02-13 19:21 | NUR ---
JJ FROM [facility] CAME TO ASSESS PT FOR POSSIBLE PLACEMENT. JJ WILL TRY TO GET AN ANSWER TODAY REGARDING ACCEPTANCE. JJ FEELS PT NEEDS A LOCKED UNIT. FAMILY INFORMED JJ THAT THEY DO NOT WANT PT ON A LOCKED UNIT. SUHAS STATED THAT IS RECOMMENDING LOCKED UNIT FOR SAFETY.
--- NOTE | 2017-02-13 19:23 | NUR ---
HAMMAD FROM [facility]. SW RETURNED CALL AND LVM WITH NUMBERS.
[2017-02-13 20:10] VITALS: BP 136/62
--- NOTE | 2017-02-14 05:09 | NUR ---
24 HR chart check completed.
--- NOTE | 2017-02-14 05:20 | NUR ---
PT SLEPT 8 HOURS THIS SHIFT. NO S/S OF DISTRESS NOTED. NO C/O PAIN. SEE [facility] FLOWSHEET FOR SPECIFIC MONITORING. Q 15 MINUTE SAFETY CHECKS MAINTAINED.
[2017-02-14 07:54] VITALS: BP 137/70
--- NOTE | 2017-02-14 11:24 | NUR ---
PT did attend group this morning but did not participate. PT did sit and watch the PTs as they participated but also wandered around, going in and out of room. Staff encourage PT to sit or participate but PT refused
--- NOTE | 2017-02-14 15:41 | NUR ---
PT did attend RT group this afternoon. PT did participate during the trivia portion of group but chose not to participate during the painting portion of group. PT was cheerfull, appropriate and watched the other PTs as they participated in the painting portion of group
--- NOTE | 2017-02-14 16:00 | NUR ---
PATIENT IS ALERT AND ORIENTED TO PERSON AND PLACE. ST/LT MEMORY VERY POOR. MOOD IS STABLE AND EUTHYMIC. NO HALLUCINATIONS OR DELUSIONS NOTED. CALM AND COOPERATIVE THIS SHIFT. MEDICATION COMPLIANT WITHOUT DIFFICULTY. INTERACTING WELL WITH STAFF AND PEERS. APPETITE GOOD FOR BREAKFAST AND LUNCH. WANDERS ABOUT THE UNIT MOST OF THE SHIFT, PLEASANTLY CONFUSED PER USUAL. NO THREATENING BEHAVIORS, AGITATION, OR AGGRESSION NOTED THIS SHIFT. RESPIRATIONS EASY AND EVEN. WILL CONTINUE Q15 MIN SAFETY CHECKS, WANDER/ELOPEMENT PRECUATIONS, FREQUENT REDIRECTION, AND DISTRACTION TECHNIQUES NEEDED.
[2017-02-14 19:41] VITALS: BP 133/76
--- NOTE | 2017-02-14 21:09 | NUR ---
TREATMENT TEAM WAS HELD TO DISCUSS CARE WITH THE FOLLOWING, DR. COPE ([facility]), RNs, SW. PENDING DISCHARGE FOR SaturdayJanuary.
--- NOTE | 2017-02-14 21:10 | NUR ---
HAMMAD [facility] [employer] [facility] [place] REPORTING THAT FAMILY WANTS PT ON NON LOCKED UNIT AND FACILITY FEELS PT NEEDS LOCKED UNIT. JJ REQUESTED DOCUMENTATION TO SHOW FAMILY 'S ORDER FOR LOCKED UNIT. SUHAS LOOOKED IN HX AND PHYSICAL AND FOUND DOCUMNETATION AND CONFIRMED MEANING WITH DR. COPE. DR. COPE RECOMMENDS PLACEMENT IN NH OR MORE STRUCTURED SETTING MEANING LOCKED UNIT TO PREVENT ELOPMENT. JJ WILL LET FAMILY KNOW WHEN THEY RETURN.
--- NOTE | 2017-02-14 21:14 | NUR ---
DIRECTOR SPOKE WITH DTR AND FAMILY WANTS PT ON SECOND LOCKED UNIT THAT HAS MORE PEOPLE OR WALK AROUND. SUHAS CALLED JJ TO SEE IF SHE KNEW WHAT FAMILY WAS TALKING ABOUT. JJ EXPLAINED THAT THERE WAS 2 LOCKED UNITS. NOW DOORS ARE UNLOCKED BETWEEN THE 2 UNITS SO THAT RESIDENTS CAN WALK AROUND MORE. PT IS ABLE TO BE PLACED ON THE UNIT WHERE MORE PEOPLE WALK AND NOT ON THE OTHER LOCKED UNIT. SUHAS INFORMED JJ THAT RAMÓN IS TALKING WITH ABOUT MAYBE DISCHARGING PT ON SATURDAY. JJ STATED THAT FACILITY CAN ACCEPT HIM ON SATURDAY OR SATURDAY.
--- NOTE | 2017-02-14 22:55 | NUR ---
RESTLESS AND WANDERING INTO OTHER PEERS ROOMS. AGGITATED AND ARGUMENTATIVE. WANTS STAFF TO GET OUT OF HIS HOUSE. WALKED WITH CLIENT IN [place] IN ATTEMPTS TO REORIENT WITHOUT SUCCESS. CALMED DOWN A LITTLE BY THE END OF THE WALK. LAID DOWN AND COVERED UP.WILL MONITOR
--- NOTE | 2017-02-15 03:25 | NUR ---
24 HR chart check completed.
--- NOTE | 2017-02-15 04:30 | NUR ---
P#1- DEMENTIA I--ORIENT TO PLACE AND TIME, MEDICATION COMPLIANCE, TEACH BOUNDRIES P- DECREASE INTRUSIVENESS, MEDICATION COMPLIANCE, KNOW DATE
--- NOTE | 2017-02-15 06:03 | NUR ---
SLEPT FAIR PAST 0230AM
[2017-02-15 08:11] VITALS: BP 150/84
--- NOTE | 2017-02-15 10:56 | NUR ---
PT IS ALERT AND ORIENTED TO SELF ONLY, PLEASANTLY CONFUSED IN OTHER SPHERES. ST/LT MEMORY DEFICITS NOTED. RESPIRATIONS EASY ON ROOM AIR. MOOD IS STABLE, AFFECT IS APPROPRIATE. SPEECH IS WNL AND COHERENT, ABLE TO MAKE NEEDS KNOWN. PT DENIES HALLUCINATIONS, NO RESPONSE TO INTERNAL STIMULI NOTED. NO DELUSIONS/PARANOIA NOTED. PT DENIES SI/HI. PT IS AMBULATORY ON UNIT INDEPENDENTLY, DISPLAYS GOOD APPETITE WITH ADEQUATE FLUID INTAKE. MEDICATION COMPLIANT WITHOUT DIFFICULTY. REQUIRES REDIRECTION AND REALITY ORIENTATION FREQUENTLY THROUGHOUT THE DAY, PT HAS BEEN EASILY REDIRECTED THUS FAR THIS SHIFT, WILL CONTINUE TO MONITOR AND PROVIDE 1:1 AND REDIRECTION NEEDED. NO AGGRESSION/AGITATION NOTED THIS SHIFT. Q15 MIN MONITORING MAINTAINED, REFER TO [facility] FLOWSHEET FOR SPECIFIC MONITORING.
--- NOTE | 2017-02-15 11:19 | NUR ---
Patient participated during exercise group this morning. STanding close with staff and helping lead the group. Patient stayed focused on this activity for about 10-15min. Patient seemed to be unintereseted in craft group but was present and talkative to staff and peers. Patient continues to wander halls and ask how to go home. Patient easily redirected.
--- NOTE | 2017-02-15 11:32 | NUR ---
MCKAYLA FORD NUCLEAR POWERPLANT MECHANIC HELPER HERE TO SEE PT AT THIS TIME.
--- NOTE | 2017-02-15 12:41 | NUR ---
CALL RECIEVED FROM PT'S DAUGHTER BERNIE, UPDATE GIVEN, LEROYTHER QUESTIONING DISCHARGE, MADE AWARE DR. COPE STATES TENATIVE DISCHARGE FOR SATURDAY.
--- NOTE | 2017-02-15 15:35 | NUR ---
Patient was pleasant and confused during group this afternoon. Patient was encouraged to participate and needed 1:1 assistance from tavo and this staff. Patient was appropriate and talking about his [employer] with peers and staff. Patient continues to ask about going home, but easily redirected.
--- NOTE | 2017-02-15 17:40 | NUR ---
TREATMENT TEAM WAS HELD TO DISCUSS CARE WITHT HE FOLLOWING: DR. COPE(PHONE), RNs, AT, SW, AND DIRECTOR. DR. COPE SCHEDULED DISCHARGE FOR SATURDAY. PT HAS BEEN ACCEPTED AT [facility]
--- NOTE | 2017-02-15 18:05 | NUR ---
SW REQUESTED THAT THE UNIT [facility] SCHEDULE TRANSPORATION FOR PT TO BE DISCHARGED ON SATURDAY TO [facility]SA PATRICIO AROUND 11AM.
--- NOTE | 2017-02-15 18:26 | NUR ---
SHIFT CHART CHECK COMPLETED.
[2017-02-15 20:10] VITALS: BP 155/83
--- NOTE | 2017-02-16 04:04 | NUR ---
24HR CHART CHECK COMPLETE
--- NOTE | 2017-02-16 04:05 | NUR ---
PT HAS SLEPT <3HRS UPON THE TIME OF DOCUMENTATION. FREQUENTLY PACING THE HALLS AND INQUIRING ABOUT HOW TO LEAVE. PT ORIENTED TO NAME ONLY. SUBSTANTIAL DEFICIT IN SHORT TERM MEMORY NOTED. REDIRECTION IS DIFFICULT DUE TO AFORMENTIONED ISSUE. MOOD HAS BEEN STABLE. MEDICATION COMPLIANT. PT VOICES NO SI/HI, NO HALLUCINATIONS OR DELUSIONS PRESENT. REFER TO FLOWSHEET FOR ADDITIONAL INFO.
[2017-02-16 06:13] LABS: ALBUMIN 3.6 gm/dl (3.1-4.5); ALKALINE PHOSPHATASE 50 U/L (45-117); BUN 14 mg/dl (7-24); CHLORIDE 105 mmol/L (98-107); CREATININE 1.13 mg/dL (0.70-1.30); POTASSIUM 4.2 mmol/L (3.5-5.1); SGOT/AST 28 IU/L (3-35); SGPT/ALT 37 U/L (12-78); SODIUM 141 mmol/L (136-145); TOTAL PROTEIN 7.2 gm/dL (6.4-8.2)
[2017-02-16 06:14] LABS: BASO # 0.1 10*3/uL (0.0-0.1); BASO % 0.9 % (0.0-1.0); EOS % 0.6 % (1.0-4.0); HEMATOCRIT 42.3 % (42.0-52.0); HEMOGLOBIN 14.3 g/dl (14.0-18.0); LYMPH # 2.2 10*3/uL (1.3-4.4); LYMPH % 31.5 % (27.0-41.0); MEAN CELL VOLUME 99.3 fl (80.0-94.0); MEAN CORPUSCULAR HGB 33.6 pg (27.0-31.0); MEAN CORPUSCULAR HGB CONC 33.8 g/dl (33.0-37.0); MONO # 0.6 10*3/uL (0.1-1.0); MONO % 8.7 % (3.0-9.0); PLATELET COUNT AUTOMATED 213 10*3/uL (130-400); RED BLOOD COUNT 4.26 10*6/uL (4.50-5.90); RED CELL DISTRI WIDTH 12.4 % (0-14.5); WHITE BLOOD COUNT 6.9 10*3/uL (4.8-10.8)
[2017-02-16 08:05] VITALS: BP 124/84
--- NOTE | 2017-02-16 10:00 | NUR ---
PT IS ALERT TO SELF ONLY, CONFUSED IN ALL OTHER ASPECTS. ST/LT MEMORY DEFICITS NOTED. RESPIRATIONS EASY ON ROOM AIR. MOOD IS STABLE, AFFECT IS APPROPRIATE. SPEECH IS WNL AND COHERENT, ABLE TO MAKE NEEDS KNOWN. PT DENIES HALLUCINATIONS, NO RESPONSE TO INTERNAL STIMULI NOTED. PT DENIES SI/HI. MEDICATION COMPLIANT WITHOUT DIFFICULTY. PT WANDERING UP AND DOWN HALLWAYS THROUGHOUT THE MORNING, ATTEMPTING TO OPEN DOORS TO GO HOME AND GO TO WORK. PT IS CONFUSED, REALITY REORIENTATION PROVIDED, INEFFECTIVE. PT NOTED TO BE MORE DIFFICULT TO REDIRECT THIS SHIFT THAN PREVIOUS ASSESSMENTS. FREQUENT REDIRECITON AND REALITY ORIENTATION PROVIDED BY STAFF NEEDED. PT AMBULATORY ON UNIT WITH STEADY GAIT, ASSIST OF 1 STAFF FOR ADLS, CONTINENT OF BOWEL AND BLADDER, FEEDS SELF, DISPLAYS GOOD APPETITE AND ADEQUATE FLUID INTAKE. NO DISTRESS NOTED. Q15 MIN SAFETY CHECKS MAINTAINED, REFER TO [facility] FLOWSHEET FOR SPECIFIC MONITORING. GOOD A
--- NOTE | 2017-02-16 10:52 | NUR ---
Patient participated during recreation therapy groups this morning. He was able to follow along to directions from staff for exercise group. Patient was unwilling to paint during craft group but stayed calm sitting at table with peers drinking coffee and talking with others. Patient displaying appropriate behavior and not wandering during sessions this morning.
--- NOTE | 2017-02-16 13:41 | NUR ---
PT RESTLESS THIS AFTERNOON, WANDERING UP AND DOWN HALLWAYS, ATTEMPTING TO OPEN DOORS AND STATING HE HAS TO LEAVE TO GO TO WORK. WAS IN FOR VISIT, STATES HE IS BEING VERBALLY AGGRESSIVE TOWARDS HER HE IS UPSET WITH HER BECAUSE SHE CAN NOT TAKE HIM HOME. LEFT VISITATION A FEW MINUTES EARLY DUE TO PT'S AGITATION. THIS NURSE SPOKE WITH AT LENGTH, REVIEWED DEMENTIA DISEASE PROCESS AND EMOTIONAL SUPPORT PROVIDED TO . STATES SHE CAN NOT COME VISIT THIS EVENING AND IS UNSURE OF WHETHER TO VISIT TOMORROW, ENCOURAGED TO CALL AND CHECK ON PT PRIOR TO VISITING FOR AN UPDATE. CALL PLACED TO DR. COPE TO UPDATE ON PT'S CONDITION AT THIS TIME, REVIEWED PT'S POOR SLEEP LAST NIGHT, CURRENT MEDICATIONS REVIEWED WITH MD. DR. COPE STATES TO ADD DEPAKOTE SPRINKLES 250MG PO AT HS. ORDER READ BACK AND VERIFIED. PT CURRENTLY PLAYING GAME WITH ACTIVITIES THERAPIST AND PEERS AT THIS TIME.
--- NOTE | 2017-02-16 14:01 | NUR ---
PT CONTINUES TO BE RESTLESS, INTRUSIVE INTO PEER'S INTERACTIONS, DIFFICULT TO REDIRECT AT THIS TIME. PT IS PREOCCUPIED WITH GOING HOME, STATES HE HAS TO GO TO WORK AND IS ANGRY WITH HIS FOR NOT TAKING HIM HOME FOLLOWING VISITATION. REALITY ORIENTATION PROVIDED, INEFFECTIVE. DIVERSIONAL ACTIVITIES PROVIDED, INEFFECTIVE. ALL PHYSICAL NEEDS MET. PT GIVEN PRN HALDOL 5MG PO AT THIS TIME, 1401 FOR INCREASED AGITATION. WILL MONITOR FOR EFFECTIVENESS.
--- NOTE | 2017-02-16 14:45 | NUR ---
HALDOL WITH POSITIVE EFFECT OF THIS TIME, PT PARTICIPATING IN BINGO ACTIVITY GAME WITH STAFF AND PEERS, CALM AT THIS TIME.
--- NOTE | 2017-02-16 15:18 | NUR ---
Cayla becoming restless and somewhat agitated after his 's visitation. Patient not understanding that he can't go home. This staff then got him occupied on a EBIQUOUS game in the hallway with another staff and peer. Patient seemed to enjoy this activity and this got his mind off of leaving. Patient did participate in afternoon group as well (rubin). He did this independently and stayed concentrated on this task during the group. After group was ended, patient began wandering halls asking for his shoes and a ride to go home. Patient at times difficult to redirect.
--- NOTE | 2017-02-16 15:35 | NUR ---
DR. CLAROS HERE TO SEE PT AT THIS TIME.
--- NOTE | 2017-02-16 16:04 | NUR ---
DR. HEATH AND DR. CLAROS HERE TO SEE PT AT THIS TIME.
--- NOTE | 2017-02-16 17:07 | NUR ---
SHIFT CHART CHECK COMPLETED.
[2017-02-16 19:52] VITALS: BP 136/80
--- NOTE | 2017-02-17 01:43 | NUR ---
pt awake pacing the halls, wringing his hands together pacing back and forth unable to answer questions appropriately. difficult to redirect becoming increasingly agitated. PO haldol administered
--- NOTE | 2017-02-17 02:00 | NUR ---
PT RESTING QUIETLY IN BED AT THIS TIME PRN HALDOL EFFECTIVE.
--- NOTE | 2017-02-17 05:30 | NUR ---
24 HR chart check completed.
--- NOTE | 2017-02-17 05:55 | NUR ---
PT SLEPT 6 HOURS VITH MULTIPLE INTURRUPTIONS THROUGHT THE NIGHT. PLESANT AND COOPERATIVE. DIFFICULT TO REDIRECT AT TIMES. FREQUENTLY WANDERING INTO OTHER PATIENTS ROOM. MED COMLIANT WITH OUT DIFFICULTY. SEE FLOW SHEET FOR SPECIFIC MONITORING.
[2017-02-17 07:53] VITALS: BP 137/69
--- NOTE | 2017-02-17 10:32 | NUR ---
RECIEVED CALL FROM PT'S DAUGHTER BERNIE, UPDATE GIVEN, BERNIE REQUESTS AFTER THE DOCTOR ASSESS PT TOMORROW THAT WE CALL PT'S AND/OR DAUGTHER BERNIE TO LET THEM KNOW WHETHER HE WILL BE DISCHARGED OR NOT. WILL PASS ALONG IN REPORT TO NEXT SHIFT.
--- NOTE | 2017-02-17 11:43 | NUR ---
PT did not attend RT group today.PT stated he was tired and needed a nap. PT asked where he could lie down and staff escorted him to his room. no inappropriot behavior.
--- NOTE | 2017-02-17 13:20 | NUR ---
DR. CLAROS HERE TO SEE PT AT THIS TIME.
--- NOTE | 2017-02-17 15:46 | NUR ---
PT did not attend RT group this afternon. PT did not want to join, PT walked with me to encourage other PT to join but rfused to do so himself
--- NOTE | 2017-02-17 18:18 | NUR ---
PT IS ALERT AND ORIENTED TO PERSON ONLY, PLEASANTLY CONFUSED IN OTHER ASPECTS. RESPIRATIONS EASY ON ROOM AIR. MOOD IS STABLE, AFFECT APPROPRIATE. SPEECH IS WNL AND COHERENT, ABLE TO MAKE NEEDS KNOWN. PT DENIES HALLUCINATIONS, NO RESPONSE TO INTERNAL STIMULI NOTED. PT DENIES SI/HI. NO DELUSIONS OR PARANOIA NOTED. PT IS MEDICATION COMPLIANT WITHOUT DIFFICULTY. PT IS AMBULATORY WITH STEADY GAIT, REQUIRES ASSIST OF 1 FOR ADLS, CONTINENT OF BOWEL AND BLADDER, FEEDS SELF, DISPLAYS GOOD APPETITE WITH ADEQUATE FLUID INTAKE. PT CONTINUES TO WANDER THE HALLWAYS AND ATTMEPT TO OPEN DOORS TO LEAVE BUT HAS BEEN EASILY REDIRECTED BY STAFF. REALITY REORIENTATION PROVIDED FREQUENTLY THROUGHOUT THE SHIFT. NO DISTRESS NOTED. Q15 MIN SAFETY CHECKS MAINTAINED. REFER TO [facility] FLOWSHEET FOR SPECIFIC MONITORING.
--- NOTE | 2017-02-17 18:59 | NUR ---
SHIFT CHART CHECK COMPLETED.
[2017-02-17 19:46] VITALS: BP 134/73
--- NOTE | 2017-02-18 00:56 | NUR ---
24 HR chart check completed.
--- NOTE | 2017-02-18 06:21 | NUR ---
PT SLEPT THROUGHOUT THE NIGHT WITH MULTIPLE INTURRPTIONS. PT MUCH EASIER TO REDIRECT. SLEPT 6 HOURS TOTAL. MED COMPLIANT SEE FLOW SHEET FOR SPECIFIC MONITORING.
[2017-02-18 07:43] LABS: ALBUMIN 3.8 gm/dl (3.1-4.5); ALKALINE PHOSPHATASE 48 U/L (45-117); BUN 14 mg/dl (7-24); CHLORIDE 101 mmol/L (98-107); CREATININE 1.02 mg/dL (0.70-1.30); POTASSIUM 4.3 mmol/L (3.5-5.1); SGOT/AST 31 IU/L (3-35); SGPT/ALT 40 U/L (12-78); SODIUM 141 mmol/L (136-145); TOTAL PROTEIN 7.5 gm/dL (6.4-8.2)
[2017-02-18 07:55] VITALS: BP 131/75
[2017-02-18 08:10] LABS: BASO # 0.1 10*3/uL (0.0-0.1); EOS % 0.5 % (1.0-4.0); HEMATOCRIT 44.2 % (42.0-52.0); LYMPH # 2.1 10*3/uL (1.3-4.4); LYMPH % 36.5 % (27.0-41.0); MEAN CELL VOLUME 99.3 fl (80.0-94.0); MEAN CORPUSCULAR HGB 33.7 pg (27.0-31.0); MEAN CORPUSCULAR HGB CONC 33.9 g/dl (33.0-37.0); MEAN PLATELET VOLUME 10.3 fl (9.6-12.3); MONO # 0.6 10*3/uL (0.1-1.0); MONO % 9.8 % (3.0-9.0); NEUT % 51.9 % (47.0-73.0); PLATELET COUNT AUTOMATED 217 10*3/uL (130-400); RED BLOOD COUNT 4.45 10*6/uL (4.50-5.90); RED CELL DISTRI WIDTH 12.2 % (0-14.5); WHITE BLOOD COUNT 5.8 10*3/uL (4.8-10.8)
[2017-02-18] MEDS ORDERED: ABILIFY5 MG PO (10:07)
[2017-02-18] MEDS ORDERED: MEMANTINE HCL10 MG PO (10:07)
[2017-02-18] MEDS ORDERED: DIVALPROEX SOD125 M1 PO ×3 (10:07)
[2017-02-18] MEDS ORDERED: ARICEPT10 M1 PO (10:07)
--- NOTE | 2017-02-18 11:48 | NUR ---
Spa Receptionist Note: Scheduled transportation to [facility] with [facility] for 6pm today.
--- NOTE | 2017-02-18 12:00 | NUR ---
CALL PLACED TO PT'S TO MAKE AWARE OF MANAGER [employer] TIME FOR DISCHARGE SET FOR 6PM.
--- NOTE | 2017-02-18 13:21 | NUR ---
Patient displaying calm/cooperative behaviors during recreation therapy groups this moring. Patient sitting quietly having coffee and joining in with conversation/reminiscing/trivia with the group. Patient also following along with exercise and staying focused on task/activity.
--- NOTE | 2017-02-18 13:47 | NUR ---
PT IS ALERT AND ORIENTED TO SELF ONLY, PLEASANTLY CONFUSED IN OTHER ASPECTS. ST/LT MEMORY DEFICITS NOTED. RESPIRATIONS EASY ON ROOM AIR. MOOD IS STABLE, AFFECT IS BROAD RANGE. SPEECH IS WNL AND COHERENT. ABLE TO MAKE NEEDS KNOWN. PT DENIES HALLUCINATIONS, NO RESPONSE TO INTERNAL STIMULI NOTED. PT DENIES SI/HI. NO DELUSIONS OR PARANOIA NOTED. MEDICATION COMPLIANT WITHOUT DIFFICULTY. AMBULATORY WITH STEADY GAIT, REQUIRES ASSIST OF 1 FOR ADLS, FEEDS SELF WITH GOOD APPETITE AND ADEQUATE FLUID INTAKE. INTERACTIVE WITH STAFF AND PEERS. CALM AND COOPERATIVE. REALITY ORIENTATION AND REDIRECTION PROVIDED BY STAFF WHEN NEEDED, PT EASILY REDIRECTED. NO DISTRESS NOTED. Q15 MIN SAFETY CHECKS MAINTAINED, REFER TO [facility] FLOWSHEET FOR SPECIFIC MONITORING.
--- NOTE | 2017-02-18 15:47 | NUR ---
Patient was present during recreation therapy group this afternoon. Patient wandering often and asking others for a ride. Patient unwilling to do painting project but enjoyed music with [facility] staff. Patient pleasant and confused.
--- NOTE | 2017-02-18 17:50 | NUR ---
CALL PLACED TO DR. ERWIN TO MAKE AWARE PT IS BECOMING INCREASINGLY ANXIOUS ABOUT LEAVING AND BEING DISCHARGED TO [facility]. MADE AWARE CURRENT PRN ORDERS ARE FOR HALDOL 5MG PO/IM PER DR. COPE. NEW ORDER RECIEVED FOR ATIVAN 1MG PO/IM NOW. READ BACK AND VERIFIED.
--- NOTE | 2017-02-18 18:15 | NUR ---
NURSE TO NURSE REPORT GIVEN TO REBA AT [facility]. INFORMATION FAXED TO [facility] PER REQUEST. MADE AWARE PT HAS 2 POCKET KNIVES IN HIS PERSONAL BELONGINGS THAT WILL BE SENT WITH THE PT. REBA VERBALIZED UNDERSTANDING.
--- NOTE | 2017-02-18 19:25 | NUR ---
TREATMENT TEAM WAS HELD TO DISCUSS DISCHARGE WITHTHE FOLLOWING: DR. ERWIN, RNs, SW, AND DIRECTOR. PT TO BE DISCHARGED TO [facility] IN [facility] [place] TODAY.
--- NOTE | 2017-02-18 19:26 | NUR ---
CALL RECEIVED FROM JJ ELDER REQUESTING UPDATD NOTES. SUHAS FAXED NOTES. 2ND CALL JJ STATED THAT CORPORATE NURSE IS REVIEWING INFORMATION AND WILL LET JJ KNOW SOON IF PT IS ACCEPTED. SUHAS SAID THAT PT WAS ACCEPTED LAST WEEK. JJ STATED THAT PERSON THAT ACCEPTED PT DOES NOT WORK AT [employer] ANYMORE. JJ WILL DO WHAT SHE CAN. 3RD CALL FROM [facility] PT IS ACCEPTED. PT WILL BE PICKED UP AROUND 6PM.
--- NOTE | 2017-02-18 19:30 | NUR ---
SW SPOKE WITH NANCY TO NOTIFY THAT [facility] WAS ARRANGED AND CHARGER OPERATOR HELPER IS 6PM. SAID THAT MICHAELLE AT [facility] SAID THAT THEY MAY NOT TAKE PT. SW STATED THAT PT WAS ACEPTED AND WOULD BE LEAVIG THIS EVENING. 2ND CALL TO TO CONFIRM THAT PT WAS ACCEPTED AND IS LEAVIG AROUND 6PM TO GO TO [facility].
--- NOTE | 2017-02-18 19:35 | NUR ---
PT DISCHARGED AT THIS TIME VIA [facility] TO [facility] VIA [facility] WITH 2 PATIENT REGISTRAR. [facility] THEY MAY NOT TRANSPORT WEAPONS OF ANY KIND, THEREFORE THE POCKET KNIVES WERE LEFT ON THE UNIT AND THE WAS NOTIFIED. DISCHARGE INSTRUCTIONS AND MEDICATION LIST SENT WITH THE PT. ALL OTHER PERSONAL BELONGINGS WERE SENT WITH THE PT. PT LEFT THE UNIT IN STABLE CONDITION.
== END 2017-02-18 19:36 | disposition other institution (70) | DRG 57 ==
LOC: 3N 18:10
PROVIDERS: Psychiatry & Neurology Psychiatry; Registered Nurse; ADMIT Psychiatry & Neurology Psychiatry
DX: G30.9 Alzheimer's disease, unspecified (principal); F02.81 Dementia in other diseases classified elsewhere, unspecified severity, with behavioral disturbance; G40.909 Epilepsy, unspecified, not intractable, without status epilepticus; F23 Brief psychotic disorder; J45.909 Unspecified asthma, uncomplicated; E78.5 Hyperlipidemia, unspecified; Z79.899 Other long term (current) drug therapy

== ENCOUNTER 2017-08-13 17:34 | Inpatient (IN) | payer MEDICARE ==
[~2017-08-13] VITALS: Ht 158.7 cm; Wt 74.0 kg
--- NOTE | ~2017-08-13 | PR ---
[place], [place] PROGRESS NOTE NAME: JUSTIN MANLEY [id number] UNIT #: [id number] ROOM: 317 DOCTOR: GARRETT ERWIN MD BIRTHDATE: [birth year] DOS: 08/20/2017 CHIEF COMPLAINT: "Hey gela, I will help you there, do need some help?" SUMMARY OF THE VISIT: The patient was interviewed as he was eating his breakfast. He did get up as I approached and offered to help me do the work I was doing. He followed me briefly through the hallways. He did attempt to follow me into the nurses' station and when the door shut, he began banging on it briefly, but did respond to redirection when asked not to do so. He continues to be very intrusive, but redirectable. He tends to want to touch people on the shoulders or arms, not in a menacing way, but in a consoling way. He does redirect, though as mentioned previously much more easily. There has been no physical aggression and his overall demeanor seems to be improving. MENTAL STATUS: He is alert and oriented to person, place and approximate to time. Mood does seem to be improving. There is no asndy, hypomania or psychosis. Short term memory is poor, otherwise he is intact. PLAN: His valproic acid level is therapeutic at 72. I will maintain his current psychotropic regimen, engage in individual and silva milieu activities, returning then to [facility] when stable. GARRETT ERWNI MD CM:PNTRANS [id number] GARRETT ERWIN MD 08/20/17 0915 interface
--- NOTE | ~2017-08-13 | PR ---
[place], [place] PROGRESS NOTE NAME: JUSTIN MANLEY UNIT #: [id number] ROOM: 317 DOCTOR: GARRETT ERWIN MD BIRTHDATE: [birth year] DOS: 08/16/2017 CHIEF COMPLAINT: "Thank you for visiting. I had a good breakfast." SUMMARY OF THE VISIT: The patient was interviewed as he was resting quietly in bed after having breakfast. He was fairly bright and pleasant. He confabulated for the most part, was not able to tell me what he had for breakfast, but stated that everything was great and that everything is good here. He was pleasantly confused for the most part during my interview. Nurses report that he continues to be very confused and very impulsive. He wanders the unit frequently and is intrusive as far as entering other patients' bedrooms or touching other people on the shoulder or on the arm. He requires almost constant support and redirection. He will be redirected for a short period of time, but within moments will return back to the previous activity. MENTAL STATUS: The patient is alert and oriented to self. It is unclear if he realizes he is in the hospital. He is certainly not oriented to time. Mood remains labile. Affect at times is inappropriate. He remains very impulsive. Short term memory is exceedingly poor. PLAN: His valproic acid level is low at 50.7, so I will increase his Depakote from 250 mg twice a day and 500 mg at bedtime to 500 mg 3 times a day, attempting to bring the level into the range of 60-80. I will increase Namenda from 5 mg daily to 5 mg b.i.d. as I gradually titrate this upward with my target dose of 10 b.i.d. in mind. I will maximize Exelon patch to 13.3 mg a day in order to get maximum benefit in improving or maintaining ADLs, behavior and cognition. We will continue to engage in individual and silva milieu activity with the ultimate plan to return to the least restrictive environment when psychiatrically stable. GARRETT ERWIN MD CM:PNTRANS 7 GARRETT ERWIN MD 08/16/17 0927 interface
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
--- NOTE | ~2017-08-13 | PR ---
[place], [place] PROGRESS NOTE NAME: JUSTIN MANLEY UNIT #: [id number] ROOM: 317 DOCTOR: GARRETT ERWIN MD BIRTHDATE: [birth year] DOS: 08/15/2017 CHIEF COMPLAINT: "Hey, gela, how are you are doing. SUMMARY OF THE VISIT: The patient was interviewed in the dining area where he was sitting waiting for breakfast. He greeted me warmly and reported that he has no issues, having slept well and is ready for breakfast. 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 He did redirect relatively easily and was able to be reengaged in more meaningful activity. MENTAL STATUS EXAMINATION: This morning, he is alert and oriented to person. It is unclear if he knows yet where he is and he is certainly not oriented to time. Mood is fairly pleasant and bright. Affect appropriate. No sandy or hypomania and no overt auditory or visual hallucinations noted. Short term memory is poor and he processes slowly. PLAN: I will go ahead and increase Exelon patch from 4.6 to 9.5 mg daily. Check valproic acid level in the a.m. Continue to monitor sleep and support, engage in individual and silva milieu activities, returning home or the least restrictive environment when stable. GARRETT ERWIN MD CM:PNTRANS [phone] GARRETT ERWIN MD 08/15/17 1012 interface
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
--- NOTE | ~2017-08-13 | PR ---
[place], [place] PROGRESS NOTE [id number] #: [id number] ROOM: 317 DOCTOR: GARRETT ERWIN MD BIRTHDATE: [birth year] DOS: 08/21/2017 CHIEF COMPLAINT: "Hey, there gela I need to find my room." SUMMARY OF THE VISIT: The patient was interviewed as he was walking in the hallway. He was walking towards the entrance of the facility when I intervened. He did request that I help him find his room. He walked calmly and quietly with me engaging in bright and pleasant conversation. He reported that he wanted to lay down, which he did and approximately 2 minutes later he was back up wandering the hallways again. He continues to be very busy and very active on the unit, but is redirecting with verbal prompts and is not escalating to the point of physical altercation. He has had minimal of these and these have become less frequent and less intense. He is tolerating the current medication regimen well. MENTAL STATUS: He is alert and oriented to self. It is unclear if he realizes he is at [facility]. He is certainly not oriented to time. Mood does seem to be for the most part euthymic. Affect appropriate. No sandy, hypomania, or psychosis is noted. Short term memory is exceedingly poor. PLAN: I will maintain his current psychotropic regimen, continue to engage in individual and silva milieu activity with the plan to return to the least restrictive environment when psychiatrically stable. GARRETT ERWIN MD CM:PNTRANS 0 GARRETT ERWIN MD 08/21/1730 interface
--- NOTE | ~2017-08-13 | PR ---
[place], [place] PROGRESS NOTE NAME: JUSTIN MANLEY UNIT #: [id number] ROOM: 317 DOCTOR: GARRETT ERWIN MD BIRTHDATE: [birth year] DOS: 08/17/2017 CHIEF COMPLAINT: "Hey jun, how are you are doing." SUMMARY OF THE VISIT: The patient was interviewed first when he was in the quick talking to the nurse and then later as he sat down in the dining area to watch television. He engaged readily in conversation. He was very jovial upon approach. He is very busy, however, and continues to pace the halls, intrusive into other people's business, touching them not inappropriately but without invitation. He will put his hand on their shoulder or their arm. 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 He redirects relatively well, although twice yesterday he did receive p.r.n. intervention to prevent further escalation. The PRNs are being used rather frequently with some success. MENTAL STATUS: He is alert and oriented to self only. He does not know where he is at. He is certainly not oriented to time. Mood for the most part is euthymic with some mood lability noted. There is no sandy, hypomania or psychosis. He does process extremely slow and memory is poor. PLAN: I will increase Namenda to 10 mg in the morning and 5 mg at night. I will add straight Ativan 0.5 mg t.i.d. in an effort to get ahead of some of the agitation and irritability. We will engage in individual and silva milieu activity, returning to the least restrictive environment when stable. GARRETT ERWIN MD CM:PNTRANS 4 0 GARRETT ERWIN MD 08/17/1739 interface
--- NOTE | ~2017-08-13 | PR ---
[place], [place] PROGRESS NOTE NAME: JUSTIN MANLEY UNIT #: [id number] ROOM: 317 DOCTOR: GARRETT ERWIN MD BIRTHDATE: [birth year] DOS: 08/19/2017 CHIEF COMPLAINT: "Hey gela, what are you doing." SUMMARY OF THE VISIT: The patient was interviewed as he was walking in the dining area. He stopped and greeted me, first waving at me, then shaking my hand. He reports that he is feeling well. He thinks he has had breakfast, but is not certain. Nurses report that overall he does seem to be more redirectable and that the 11:00 a.m. Ativan had a dramatic effect on his overall disposition for the remainder of the day. We will monitor to see if that occurs once again today. MENTAL STATUS: He is alert and oriented to self, possibly place, but not time. Mood does seem to be trending towards euthymia. Affect is more appropriate. There is no sandy or hypomania. No psychotic symptoms. Short term memory is exceedingly poor. PLAN: I will go ahead and recheck valproic acid level in the a.m. on 08/20/2017 to ensure that it is therapeutic. The last level that was obtained was 50.7 and that was obtained on 08/16/2017. We will engage in individual and silva milieu activity, returning to the least restrictive environment when stable. GARRETT ERWIN MD CM:PNTRANS [id number] GARRETT ERWIN MD 08/19/17 0945 interface
--- NOTE | ~2017-08-13 | PR ---
[place], [place] PROGRESS NOTE NAME: JUSTIN MANLEY UNIT #: [id number] ROOM: 317 DOCTOR: GARRETT ERWIN MD BIRTHDATE: [birth year] DOS: 08/18/2017 CHIEF COMPLAINT: "Hey, there jun, how are you Sir." SUMMARY OF THE VISIT: The patient was interviewed as he was walking into the dining area. He shook my hand pleasantly and engaged in conversation. He continues to be very intrusive and hard to redirect and many of the other patients on the unit did bring up that they are somewhat irritated by his behavior, but have been trying to be patient. Nurses report that he does seem to take an extreme turn for the worse following lunch and that he becomes episodically noncompliant with medication and redirection following lunch. MENTAL STATUS EXAMINATION: This morning, he is alert and oriented to self only. He is fairly pleasant and bright and cooperative. He remains delusional, but redirectable. He processes slowly and memory is poor. PLAN: I will max out the Namenda at 10 mg b.i.d. I will specifically order Ativan 1 mg to be given at 1100 hours and 0.5 mg at 1500 hours and two 2000 hours. We will continue to support and monitor, engage in individual and silva milieu activity, returning to the least restrictive environment when stable. GARRETT ERWIN MD CM:PNTRANS [id number] [id number] GARRETT ERWIN MD 08/18/17 1144 interface
[~2017-08-13 17:34] MED LIST: ABILIFY5 MG PO; ARICEPT10 M1 PO; DIVALPROEX SOD125 M1 PO; LUMIGAN50 DRP OU; MEMANTINE HCL10 MG PO; NAMENDA10 MG PO; SPIRIVA18 MCG PO; ZOCOR20 MG PO
[2017-08-13] MEDS ORDERED: LIPITOR10 MG PO (17:40)
[2017-08-13] MEDS ORDERED: HYDROCHLOROTHIA25 M1 PO (17:41)
[2017-08-13] MEDS ORDERED: XALATAN 0.005%2.5 ML OU (17:42)
[2017-08-13] MEDS ORDERED: MOBIC15 MG PO (17:42)
[2017-08-13] MEDS ORDERED: MULTIVITAMINS1 EAC5 PO (17:43)
[2017-08-13] MEDS ORDERED: B121000 MCG/1 IM (17:45)
[2017-08-13] MEDS ORDERED: DOCUSATE SODIU100 M2 PO (17:46)
[2017-08-13] MEDS ORDERED: ARICEPT5 M1 PO (17:46)
[2017-08-13] MEDS ORDERED: VISTARIL25 MG PO (17:47)
[2017-08-13] MEDS ORDERED: DEPAKOTE SPRIN125 MG PO (17:48)
[2017-08-13] MEDS ORDERED: IPRATROPIU0.2 MG/1 M INH (17:49)
[2017-08-13 19:39] VITALS: BP 116/57
[2017-08-13 20:18] VITALS: BP 116/57
[2017-08-13 22:14] LABS: BILIRUBIN NEGATIVE (NEGATIVE); BLOOD NEGATIVE (NEGATIVE); CLARITY CLEAR (CLEAR); COLOR YELLOW (YELLOW); GLUCOSE NEGATIVE (NEGATIVE); KETONE NEGATIVE (NEGATIVE); LEUKO ESTERASE NEGATIVE (NEGATIVE); NITRITE NEGATIVE (NEGATIVE); SPECIFIC GRAVITY >= 1.030 (1.005-1.030); UROBILINOGEN 0.2 E.U./dl (0.2-1.0)
[2017-08-13 22:22] LABS: WBC 0-2 wbc/hpf (0-5)
[2017-08-14 07:42] VITALS: BP 126/63
[2017-08-14 07:54] LABS: BASO % 0.8 % (0.0-1.0); EOS # 0.1 10*3/uL (0.0-0.4); EOS % 0.9 % (1.0-4.0); HEMATOCRIT 41.4 % (42.0-52.0); HEMOGLOBIN 13.9 g/dl (14.0-18.0); LYMPH # 2.1 10*3/uL (1.3-4.4); LYMPH % 39.7 % (27.0-41.0); MEAN CELL VOLUME 98.3 fl (80.0-94.0); MEAN CORPUSCULAR HGB CONC 33.6 g/dl (33.0-37.0); MEAN PLATELET VOLUME 10.1 fl (9.6-12.3); MONO # 0.5 10*3/uL (0.1-1.0); MONO % 9.3 % (3.0-9.0); NEUT # 2.6 10*3/uL (2.3-7.9); NEUT % 49.1 % (47.0-73.0); PLATELET COUNT AUTOMATED 171 10*3/uL (130-400); RED BLOOD COUNT 4.21 10*6/uL (4.50-5.90); RED CELL DISTRI WIDTH 12.7 % (0-14.5); WHITE BLOOD COUNT 5.3 10*3/uL (4.8-10.8)
[2017-08-14 08:11] LABS: CHLORIDE 102 mmol/L (98-107); POTASSIUM 3.7 mmol/L (3.5-5.1); SODIUM 141 mmol/L (136-145)
[2017-08-14 08:29] LABS: ALBUMIN 3.4 gm/dl (3.1-4.5); ALKALINE PHOSPHATASE 70 U/L (45-117); BUN 16 mg/dl (7-24); CHOLESTEROL 158 mg/dL (<200); CREATININE 0.75 mg/dL (0.70-1.30); HDL CHOLESTEROL 43 mg/dl (40-60); LDL CHOLESTEROL 81 mg/dL (9-159); SGOT/AST 14 IU/L (3-35); SGPT/ALT 17 U/L (12-78); THYROID STIM HORMONE (HS) 0.748 uIU/ml (0.358-4.75); TOTAL PROTEIN 7.2 gm/dL (6.4-8.2); TRIGLYCERIDES 170 mg/dl (<150); VLDL CHOLESTEROL 34 mg/dL (6-40)
[2017-08-14 08:42] LABS: VITAMIN D, 25-HYDROXY 17.1 ng/mL (30-100)
[2017-08-14 19:58] VITALS: BP 124/52
[2017-08-15 07:32] VITALS: BP 134/64
[2017-08-15 19:52] VITALS: BP 134/73
[2017-08-16 07:40] VITALS: BP 111/74
[2017-08-16 20:00] VITALS: BP 126/70
[2017-08-17 07:59] VITALS: BP 124/59
[2017-08-17 20:02] VITALS: BP 137/61
[2017-08-18 07:50] VITALS: BP 132/64
[2017-08-18 20:07] VITALS: BP 138/74
[2017-08-19 07:48] VITALS: BP 122/64
[2017-08-19 19:54] VITALS: BP 135/78
[2017-08-20 08:56] VITALS: BP 128/72
[2017-08-20 19:46] VITALS: BP 145/88
[2017-08-21 07:48] VITALS: BP 111/60
[2017-08-21 20:45] VITALS: BP 115/64
[2017-08-22 08:08] VITALS: BP 116/77
[2017-08-22] MEDS ORDERED: DIVALPROEX SOD125 M1 PO (10:40)
[2017-08-22] MEDS ORDERED: MEMANTINE HCL10 MG PO (10:40)
[2017-08-22] MEDS ORDERED: TRAZODONE50 MG PO (10:40)
[2017-08-22] MEDS ORDERED: EXELON13.3 MG/21 T (10:40)
== END 2017-08-22 12:23 | disposition other institution (70) | DRG 883 ==
LOC: 3N 17:34
PROVIDERS: Psychiatry & Neurology Psychiatry
DX: F63.81 Intermittent explosive disorder (principal); G40.909 Epilepsy, unspecified, not intractable, without status epilepticus; G30.9 Alzheimer's disease, unspecified; F02.81 Dementia in other diseases classified elsewhere, unspecified severity, with behavioral disturbance; E78.5 Hyperlipidemia, unspecified; Z66 Do not resuscitate; Z51.5 Encounter for palliative care; J44.9 Chronic obstructive pulmonary disease, unspecified; H40.9 Unspecified glaucoma; I10 Essential (primary) hypertension; J45.909 Unspecified asthma, uncomplicated; Z79.899 Other long term (current) drug therapy

== ENCOUNTER 2018-01-12 12:37 | Emergency (ER) | payer MEDICARE ==
[~2018-01-12] VITALS: Wt 81.6 kg
[~2018-01-12 12:37] MED LIST changes: +ARICEPT5 M1 PO; +B121000 MCG/1 IM; +DEPAKOTE SPRIN125 MG PO; +DOCUSATE SODIU100 M2 PO; +EXELON13.3 MG/21 T; +HYDROCHLOROTHIA25 M1 PO; +IPRATROPIU0.2 MG/1 M INH; +LIPITOR10 MG PO; +MOBIC15 MG PO; +MULTIVITAMINS1 EAC5 PO; +TRAZODONE50 MG PO; +VISTARIL25 MG PO; +XALATAN 0.005%2.5 ML OU
[2018-01-12] MEDS ORDERED: LIPITOR10 MG PO (13:16)
[2018-01-12] MEDS ORDERED: REMERON15 M2 PO (13:19)
[2018-01-12] MEDS ORDERED: RISPERDAL0.5 MG PO (13:21)
[2018-01-12 13:25] LABS: BASO % 0.7 % (0.0-1.0); EOS # 0.1 10*3/uL (0.0-0.4); EOS % 1.2 % (1.0-4.0); HEMATOCRIT 40.3 % (42.0-52.0); HEMOGLOBIN 12.9 g/dl (14.0-18.0); LYMPH # 2.4 10*3/uL (1.3-4.4); LYMPH % 40.1 % (27.0-41.0); MEAN CELL VOLUME 103.6 fl (80.0-94.0); MEAN CORPUSCULAR HGB 33.2 pg (27.0-31.0); MEAN PLATELET VOLUME 10.3 fl (9.6-12.3); MONO # 0.7 10*3/uL (0.1-1.0); MONO % 11.8 % (3.0-9.0); NEUT # 2.7 10*3/uL (2.3-7.9); PLATELET COUNT AUTOMATED 156 10*3/uL (130-400); RED BLOOD COUNT 3.89 10*6/uL (4.50-5.90); RED CELL DISTRI WIDTH 14.4 % (0-14.5); WHITE BLOOD COUNT 5.9 10*3/uL (4.8-10.8)
[2018-01-12] MEDS ORDERED: VITAMIN D350000 UNIT PO (13:26)
[2018-01-12] MEDS ORDERED: RIVASTIGMINE TAR6 M1 PO (13:27)
[2018-01-12] MEDS ORDERED: LORAZEPAM0.5 MG PO (13:28)
[2018-01-12] MEDS ORDERED: DEPAKOTE500 MG PO (13:31)
[2018-01-12 13:34] LABS: ALBUMIN 3.2 gm/dl (3.1-4.5); ALKALINE PHOSPHATASE 60 U/L (45-117); BUN 17 mg/dl (7-24); CHLORIDE 105 mmol/L (98-107); POTASSIUM 4.1 mmol/L (3.5-5.1); SGOT/AST 31 IU/L (3-35); SGPT/ALT 27 U/L (12-78); SODIUM 144 mmol/L (136-145); TOTAL PROTEIN 6.9 gm/dL (6.4-8.2)
[2018-01-12] MEDS ORDERED: LACTULOSE10 GM/153 PO (13:34)
[2018-01-12 13:36] LABS: ACT PARTIAL THROMBO TIME 25.9 SECONDS (20.8-31.5)
[2018-01-12 13:38] LABS: ETHYL ALCOHOL < 3.0 mg/dl (<3)
[2018-01-12 13:42] LABS: THYROID STIM HORMONE (HS) 0.924 uIU/ml (0.358-4.75)
[2018-01-12 13:55] LABS: BILIRUBIN NEGATIVE (NEGATIVE); BLOOD TRACE-INTACT (NEGATIVE); CLARITY CLEAR (CLEAR); COLOR YELLOW (YELLOW); GLUCOSE NEGATIVE (NEGATIVE); KETONE TRACE (NEGATIVE); LEUKO ESTERASE NEGATIVE (NEGATIVE); NITRITE NEGATIVE (NEGATIVE); PH 5.5 (5.0-9.0); SPECIFIC GRAVITY 1.025 (1.005-1.030); UROBILINOGEN 0.2 E.U./dl (0.2-1.0)
[2018-01-12 14:06] LABS: URINE AMPHETAMINES < 1000 (1000ng/ml); URINE BARBITURATES < 200 (200ng/ml); URINE BENZODIAZEPINES < 200 (200ng/ml); URINE CANNABINOIDS (THC) < 50 (50ng/ml); URINE COCAINE < 300 (300ng/ml); URINE METHADONE < 300 (300ng/ml); URINE OPIATES < 300 (300ng/ml)
[2018-01-12 14:11] LABS: BACTERIA TRACE
[2018-01-12 14:15] LABS: URINE PHENCYCLIDINE < 25 (25ng/ml)
[2018-01-12] MEDS ORDERED: Depakote ER500 MG PO (16:20)
[2018-01-12] MEDS ORDERED: REMERON SOLTAB15 MG PO (16:25)
== END 2018-01-12 16:10 | disposition home health service (06) ==
LOC: ED 12:37
PROVIDERS: Emergency Medicine
DX: F03.91 Unspecified dementia, unspecified severity, with behavioral disturbance (principal); E78.5 Hyperlipidemia, unspecified; I10 Essential (primary) hypertension; J45.909 Unspecified asthma, uncomplicated; G40.909 Epilepsy, unspecified, not intractable, without status epilepticus; Z79.899 Other long term (current) drug therapy

== ENCOUNTER 2018-01-12 15:59 | Inpatient (IN) | payer MEDICARE ==
[~2018-01-12] VITALS: Ht 160 cm; Wt 74.0 kg
--- NOTE | ~2018-01-12 | PR ---
[place], [place] PROGRESS NOTE NAME: JUSTIN MANLEY UNIT #: [id number] ROOM: 309 DOCTOR: GARRETT ERWIN MD BIRTHDATE: [birth year] DOS: 01/17/2018 CHIEF COMPLAINT: "Nehemiah barahona, do you know where my shop is, [place]." SUMMARY OF THE VISIT: The patient was interviewed as he sat in the group therapy room with an aid. He still continues to be very confused and on the go, wanting to pace constantly. He continues to be also somewhat hard to redirect. He still has an outward tremor, which may be because of the Depakote at this time. I will go ahead and discontinue the Depakote and increase his Seroquel to 25 mg 3 times a day. Continue to monitor and support, engage in individual and silva milieu activities. MENTAL STATUS: He is alert and oriented to self only. He does not realize he is in the hospital. He is not oriented to time. Mood still seems to be labile. Affect at times inappropriate. There is no hypomania or sandy. There are no auditory or visual hallucinations. Short term memory is problematic. PLAN: As mentioned earlier, I will discontinue Depakote in lieu of increasing the Seroquel from 25 mg a day to 25 mg 3 times a day. GARRETT ERWIN MD CM:PNTRANS [phone] [id number] GARRETT ERWIN MD 01/17/182032 interface
--- NOTE | ~2018-01-12 | PR ---
[place], [place] PROGRESS NOTE NAME: JUSTIN MANLEY UNIT #: [id number] ROOM: 309 DOCTOR: GARRETT ERWIN MD BIRTHDATE: [birth year] DOS: 01/19/2018 INTERVAL NOTE CHIEF COMPLAINT: The patient was resting quietly in his bed." SUMMARY OF THE VISIT: The patient was resting in bed and I attempted briefly to get him up. Nurses report that he did have a much better late evening and night and slept through the night well into this morning. This is in lepe contrast to his constant pacing where he will pace to the point to he is ready until drop. At this point in time, I plan to monitor him and see if this temporary somnolence passes. MENTAL STATUS: Limited due to his somnolence this morning. PLAN: Renew the p.r.n. Ativan in case he requires intervention, support and monitor, engage in individual and silva milieu activity, returning to the least restrictive environment when psychiatrically stable. GARRETT ERWIN MD CM:PNTRANS [id number] GARRETT ERWIN MD 01/20/18 0122 interface
--- NOTE | ~2018-01-12 | WRIGHTHP ---
[place], [place] PATIENT HISTORY AND PHYSICAL EXAM NAME: JUSTIN MANLEY UNIT #: [id number] ROOM: 309 DOCTOR: GARRETT ERWIN MD BIRTHDATE: [birth year] DOS: 01/13/2018 CHIEF COMPLAINT: "I don't know what I am doing here. I have been here for about a week. No one told me what to do." HISTORY OF PRESENT ILLNESS: This is a 77-year-old white male who is a resident of [facility]. The patient is well known to us due to a previous psychiatric admission here to the [facility] unit. The patient has been escalating well at his long-term care facility to the point where he has been both verbally and physically aggressive. There has been increased exit seeking behavior. Attempts to redirect him have only led to him becoming increasingly verbal and physically aggressive. Overall, his behavior has spiraled out of control to the point where the staff at the long-term care facility fear for his safety as well as for the safety of other residents. He is admitted now to rule out any organic issue, to stabilize on medication, to engage in individual and silva milieu activity with the plan to return to the least restrictive environment when psychiatrically stable. PAST MEDICAL HISTORY: Remarkable for seizure disorder, hypertension, hyperlipidemia, glaucoma, COPD, asthma, dementia and intermittent explosive disorder. SOCIAL HISTORY: The patient does not drink alcohol. He does not smoke cigarettes nor does he use any type of illicit drug. ALLERGIES: He has no known allergies. STRENGTHS: Good verbal skills and a supportive living environment. WEAKNESSES: Cognitive decline and poor coping skills. MENTAL STATUS: Upon admission, the patient is alert and oriented to self only. On multiple occasions, he reported to me that he thought he was in the hospital, but he was not certain. He was not certain what hospital, but then stated he has been here for 2-3 weeks. Mood this morning when I evaluated him was fairly euthymic. He was pleasant and cooperative with me and quite engaging. His thoughts were really disjointed and fragmented and he had a hard time answering questions appropriately. He tended to derail and often times responded totally inappropriate to the questions asked of him. There does seem to be an underlying delusional system. He does process conversation extremely slowly and short term memory is quite problematic. DIAGNOSIS: Intermittent explosive disorder, rule out brief psychotic disorder. PLAN: I will go ahead and discontinue his PRNs of Haldol and Benadryl in lieu of Ativan 1 mg p.o. or IM every 4 hours as needed. If needed, I will add Geodon p.r.n., but for now, I will utilize just the Ativan. I will maintain him on his Exelon and Namenda as well as his Depakote. His Depakote level is therapeutic at 93.0. I will add low dose Risperdal 0.5 mg twice daily in an attempt to stabilize his mood lability and decrease his impulsive, agitation and [place], [place] PATIENT HISTORY AND PHYSICAL EXAM NAME: JUSTIN MANLEY UNIT #: [id number] ROOM: [facility] DOCTOR: GARRETT ERWIN MD BIRTHDATE: [birth year] aggression. We will attempt to engage him in individual and silva milieu activity with the plan to return to the least restrictive environment when psychiatrically stable. GARRETT ERWIN MD CM:HISPHYS:PATIENT HISTORY AND PHYSICAL EXAMINATION 6 [id number] GARRETT ERWIN MD 01/13/18 1015 interface
--- NOTE | ~2018-01-12 | PR ---
[place], [place] PROGRESS NOTE NAME: JUSTIN MANLEY UNIT #: [id number] ROOM: 309 DOCTOR: GARRETT ERWIN MD BIRTHDATE: [birth year] DOS: 01/20/2018 INTERVAL NOTE CHIEF COMPLAINT: "Oh doctor, it's so good to see you." SUMMARY OF THE VISIT: The patient was interviewed as he was walking up and down the quick with the assistance of an aide. He continues to move nonstop and paces considerably. Efforts to try to reengage him in other activities usually have short response rates. He did eventually follow me down to the TV room and sat down to have a small snack and watch television. He has been episodically noncompliant with his meds. I did have a talk with pharmacy who is going to look to see what medicines could be successfully compounded so that we can utilize some type of transdermal delivery system to improve compliance. MENTAL STATUS: He is alert and oriented to person, select others, possibly place, but not time. Mood does seem to be euthymic, but he is still volatile at times. There is no hypomania or sandy. No gross psychosis. Short term memory is problematic. PLAN: As listed above. We will look to see what medicines can be compounded effectively and safely. GARRETT ERWIN MD CM:PNTRANS [phone] GARRETT ERWIN MD 01/21/18 0107 interface
--- NOTE | ~2018-01-12 | PR ---
[place], [place] PROGRESS NOTE NAME: [id number] UN[facility] #: [id number] ROOM: 309 DOCTOR: GARRETT ERWIN MD BIRTHDATE: [birth year] DOS: 01/18/2018 CHIEF COMPLAINT: "Hey, there you are, how are you." SUMMARY OF THE VISIT: The patient was interviewed as he was walking in the hallway. He was pacing nonstop. First, I did see him with one of the nurse's aides, then later with one of the patients. He continues to be quite active. He also is exhibiting some mild hand tremors. He is very confused and very hard to redirect. He is not exhibiting any sedation or somnolence, however. MENTAL STATUS: He remains alert and oriented to self only. He is very confused and disjointed in his thinking. He jumps from topic to topic. He was pleasant, however, and cooperative. There was no agitation or aggression. He does process slowly and short term memory is very problematic. PLAN: I will go ahead and discontinue the Remeron to lessen his medication load while I simultaneously increase the Seroquel to 50 mg 3 times a day. I am going to add Cogentin 0.5 mg twice daily to offset any extrapyramidal symptoms and hopefully stop the tremor utilizing this agent. I will place him on a one-on-one for safety purposes. GARRETT ERWIN MD CM:PNTRANS [phone] GARRETT ERWIN MD 01/19/18 0123 interface
--- NOTE | ~2018-01-12 | DS ---
[place], [place] DISCHARGE SUMMARY NAME: JUSTIN MANLEY UNIT #: [id number] ROOM: 309 DOCTOR: GARRETT ERWIN MD BIRTHDATE: [birth year] DOS: 01/23/2018 DATE OF ADMISSION: 01/12/2018. DATE OF DISCHARGE: 01/23/2018. CHIEF COMPLAINT: "I don't know what I am doing here. I have been here for about a week. No one told me what to do." HISTORY OF PRESENT ILLNESS: This is a 77-year-old white male who is a resident of [facility] [place]. The patient is well known to me from a previous admission here to the [facility] as well as me following him at his long-term care facility. The patient has been escalating over the last several weeks with both verbal and physical aggression. He has been exit seeking repeatedly. Attempts to redirect have only led to him becoming verbally and physically aggressive towards staff. He has even been somewhat threatening toward other residents. Because of the safety issues, it was felt that an inpatient stabilization was warranted and he was sent here then to the [facility] to be restabilized on medication, to rule out organic factors and to engage in individual and silva milieu activity, so he can be returned to the least restrictive environment when stable. PAST MEDICAL HISTORY: Remarkable for seizure disorder, hypertension, hyperlipidemia, glaucoma, COPD, asthma, dementia and intermittent explosive disorder. SUMMARY OF HOSPITAL COURSE: The patient was admitted where his p.r.n.'s of Haldol and Benadryl were discontinued in lieu of Ativan and Geodon p.r.n. Depakote was therapeutic at 93. I did add a low dose of Risperdal 0.5 mg twice daily; however, not only was this ineffective, but he almost immediately developed extrapyramidal symptoms from it with a significant tremor noted. The Risperdal was discontinued in lieu of Seroquel and the dose was increased rather rapidly again exacerbating his tremors and being ineffective. As the dose of the Seroquel started to be lowered, he actually began to improve more. During the middle part of his hospital stay, he was driven to pace the halls nonstop and needed to be put on 1:1 to prevent him from falling or attempting to elope. Once the Seroquel was brought down to 12.5 mg 3 times daily, it did have a calming effect on him and he actually was able to sit for long periods of time, to engage in conversation, to eat his meals and to even watch television. He exhibited no side effects with the lower dose of Seroquel and in fact there was no further tremor noted on this low dose. He tolerated the medication well and given the fact that he had at least 4 good days on the low dose of Seroquel, it was felt that he could be successfully returned back to [facility]. MENTAL STATUS AT DISCHARGE: The patient was alert and oriented to self, select others, not necessarily place, but approximate not to time. Mood did seem to be fairly euthymic and he was bright and pleasant upon approach. There was no sandy, hypomania or psychosis. Short term memory continues to be poor. FINAL DIAGNOSES: Intermittent explosive disorder and Alzheimer dementia. [place], [place] DISCHARGE SUMMARY NAME: JUSTIN MANLEY UNIT #: [id number] ROOM: 309 DOCTOR: GARRETT ERWIN MD BIRTHDATE: [birth year] DISPOSITION: The patient is to be admitted to [facility]. I will be the treating psychiatrist on record. There are no acute medical issues facing him. Psychiatrically, he has been stabilized on the above listed medication regimen and his biopsychosocial needs are adequately being met by his family and the long-term care facility of record. GARRETT ERWIN MD CM:DISCHARG [phone] GARRETT ERWIN MD 01/23/18 0950 interface
[~2018-01-12 15:59] MED LIST changes: +DEPAKOTE500 MG PO; +LACTULOSE10 GM/153 PO; +LORAZEPAM0.5 MG PO; +REMERON15 M2 PO; +RISPERDAL0.5 MG PO; +RIVASTIGMINE TAR6 M1 PO; +VITAMIN D350000 UNIT PO
[2018-01-12 16:19] VITALS: BP 130/61
[2018-01-12] MEDS ORDERED: Depakote ER500 MG PO (16:20)
[2018-01-12] MEDS ORDERED: REMERON SOLTAB15 MG PO (16:25)
[2018-01-12 20:40] VITALS: BP 130/61
[2018-01-13 06:27] LABS: BASO % 0.3 % (0.0-1.0); EOS # 0.1 10*3/uL (0.0-0.4); EOS % 0.9 % (1.0-4.0); HEMATOCRIT 45.8 % (42.0-52.0); HEMOGLOBIN 14.9 g/dl (14.0-18.0); LYMPH % 30.9 % (27.0-41.0); MEAN CELL VOLUME 102.2 fl (80.0-94.0); MEAN CORPUSCULAR HGB 33.3 pg (27.0-31.0); MEAN CORPUSCULAR HGB CONC 32.5 g/dl (33.0-37.0); MEAN PLATELET VOLUME 10.2 fl (9.6-12.3); MONO # 0.8 10*3/uL (0.1-1.0); MONO % 12.1 % (3.0-9.0); NEUT # 3.6 10*3/uL (2.3-7.9); NEUT % 55.6 % (47.0-73.0); PLATELET COUNT AUTOMATED 158 10*3/uL (130-400); RED BLOOD COUNT 4.48 10*6/uL (4.50-5.90); RED CELL DISTRI WIDTH 13.9 % (0-14.5); WHITE BLOOD COUNT 6.5 10*3/uL (4.8-10.8)
[2018-01-13 06:59] LABS: ALBUMIN 3.8 gm/dl (3.1-4.5); BUN 13 mg/dl (7-24); CHLORIDE 99 mmol/L (98-107); POTASSIUM 3.4 mmol/L (3.5-5.1); SODIUM 140 mmol/L (136-145)
[2018-01-13 07:08] LABS: ALKALINE PHOSPHATASE 64 U/L (45-117); CHOLESTEROL 167 mg/dL (<200); CREATININE 0.73 mg/dL (0.70-1.30); HDL CHOLESTEROL 41 mg/dl (40-60); LDL CHOLESTEROL 103 mg/dL (9-159); SGOT/AST 31 IU/L (3-35); SGPT/ALT 27 U/L (12-78); TOTAL PROTEIN 8.2 gm/dL (6.4-8.2); TRIGLYCERIDES 113 mg/dl (<150); VLDL CHOLESTEROL 23 mg/dL (6-40)
[2018-01-13 07:48] VITALS: BP 132/69
[2018-01-13 09:07] LABS: VITAMIN D, 25-HYDROXY 33.8 ng/mL (30-100)
[2018-01-13 19:58] VITALS: BP 113/69
[2018-01-14 07:50] VITALS: BP 123/70
[2018-01-14 19:56] VITALS: BP 102/53
[2018-01-15 07:58] VITALS: BP 130/70
[2018-01-15 21:28] VITALS: BP 109/56; BP 130/70
[2018-01-16 07:41] VITALS: BP 121/64
[2018-01-16 20:00] VITALS: BP 113/62
[2018-01-17 07:45] VITALS: BP 124/69
[2018-01-17 19:58] VITALS: BP 130/72
[2018-01-18 07:44] VITALS: BP 135/76
[2018-01-18 19:59] VITALS: BP 110/60
[2018-01-19 08:26] VITALS: BP 112/69
[2018-01-19 19:49] VITALS: BP 114/57
[2018-01-20 07:56] VITALS: BP 113/59
[2018-01-20 20:00] VITALS: BP 112/62
[2018-01-21 07:53] VITALS: BP 116/70
[2018-01-21 19:47] VITALS: BP 121/72
[2018-01-22 08:00] VITALS: BP 106/62
[2018-01-22 20:12] VITALS: BP 107/57
[2018-01-23 08:10] VITALS: BP 107/50
[2018-01-23] MEDS ORDERED: RIVASTIGMINE TAR3 M1 PO (09:11)
[2018-01-23] MEDS ORDERED: QUETIAPINE FUMA25 MG PO (09:11)
[2018-01-23] MEDS ORDERED: LACTULOSE20 GM/30 M PO (09:11)
[2018-01-23] MEDS ORDERED: MEMANTINE HCL10 MG PO (09:11)
== END 2018-01-23 12:07 | DRG 883 ==
LOC: 3N 15:59
PROVIDERS: Psychiatry & Neurology Psychiatry
DX: F63.81 Intermittent explosive disorder (principal); E83.41 Hypermagnesemia; G40.909 Epilepsy, unspecified, not intractable, without status epilepticus; G30.9 Alzheimer's disease, unspecified; F02.81 Dementia in other diseases classified elsewhere, unspecified severity, with behavioral disturbance; J44.9 Chronic obstructive pulmonary disease, unspecified; I10 Essential (primary) hypertension; E87.6 Hypokalemia; E78.5 Hyperlipidemia, unspecified; E78.1 Pure hyperglyceridemia; H40.9 Unspecified glaucoma; Z79.899 Other long term (current) drug therapy

== ENCOUNTER 2018-06-26 19:14 | Inpatient (IN) | payer MEDICARE, MEDICAID ==
[~2018-06-26] VITALS: Ht 137.1 cm; Wt 57.2 kg
--- NOTE | ~2018-06-26 | PR ---
[place], [place] PROGRESS NOTE NAME: JUSTIN MANLEY UNIT #: [id number] ROOM: 309 DOCTOR: GARRETT ERWIN MD BIRTHDATE: [birth year] DOS: 07/04/2018 INTERVAL NOTE CHIEF COMPLAINT: "You have a good day now." SUMMARY OF THE VISIT: The patient was interviewed as he was sitting in the dining area, waiting for breakfast. He smiled upon approach, shook my hand once again and engaged in brief superficial conversation. He was very pleasant, very confused still. There was no agitation or mood lability. Nurses do note that yesterday was overall a much more improved day. He remained redirectable throughout the day even as afternoon turns into evening and he did sleep better with the trazodone on board. MENTAL STATUS: He is alert and oriented to person, unclear if he consistently knows he is in the hospital. He is certainly not oriented to time. Mood for the most part is euthymic. Affect appropriate. There is no sandy, hypomania or gross psychosis. He is tolerating the medicines well without sedation, somnolence, extrapyramidal symptoms or tardive dyskinesia. PLAN: I will renew his Ativan p.r.n. in case he requires intervention. Otherwise, I will maintain his current psychotropic regimen given the fact that we do seem to be trending toward improvement and he is not exhibiting any medication side effects. We will continue to engage in individual and silva milieu activity, returning to the least restrictive environment when psychiatrically stable. GARRETT ERWIN MD CM:PNTRANS 0821 0025 GARRETT ERWIN MD 07/05/18 0023 interface
--- NOTE | ~2018-06-26 | PR ---
[place], [place] PROGRESS NOTE NAME: JUSTIN MANLEY UNIT #: [id number] ROOM: 309 DOCTOR: GARRETT ERWIN MD BIRTHDATE: [birth year] DOS: 07/07/2018 INTERVAL NOTE CHIEF COMPLAINT: "Wow good luck to you." SUMMARY OF THE VISIT: The patient was interviewed as he was sitting in a Fariha chair in the dining area. As I approached, he shook my hand and smiled readily, wishing me good luck and wishing me the best. He was bright and pleasant and offered no other complaints. Nurses report that there has been a steady trend toward improvement and that he has been pleasantly confused for the most part and his sleep at night has also improved. He is not exhibiting any sedation or somnolence during the day. There are no extrapyramidal symptoms or tardive dyskinesia. MENTAL STATUS: He is alert and oriented to self. Unclear if he consistently remembers he is in the hospital. He is certainly not oriented to time. Mood is relatively euthymic. Affect is appropriate. There is no sandy or hypomania. There are no gross psychotic symptoms. He is very confused and disjointed and his short-term memory is very problematic. PLAN: I will maintain his current psychotropic regimen, engage in individual and silva milieu activity, returning to the least restrictive environment when psychiatrically stable. GARRETT ERWIN MD CM:PNTRANS 0832 1058 GARRETT ERWIN MD 07/07/18 1059 interface
--- NOTE | ~2018-06-26 | PR ---
[place], [place] PROGRESS NOTE NAME: [facility]LEY [id number] UNIT #: [id number] ROOM: 309 DOCTOR: GARRETT ERWIN MD BIRTHDATE: [birth year] DOS: 07/02/2018 CHIEF COMPLAINT: "I have got to get out of here; I have got things to do." SUMMARY OF THE VISIT: The patient was interviewed as he was sitting in a Fariha chair in the dining area next to one of the nurses. He remains pleasantly confused. Yesterday, he paced up and down the quick per nursing report and did require p.r.n. Ativan, which eventually did take effect later in the afternoon-early evening, causing him to be somewhat somnolent and he rested the rest of the evening. The patient continues to be very delusional and it is very hard to redirect him. MENTAL STATUS: He is alert and oriented to person, unclear if he consistently remembers he is in the hospital. He is certainly not oriented to time. Mood does still seem to be somewhat labile. Affect at times is inappropriate. His responses tended to be short and simple at times, not a full sentence and he is rather disjointed and derails frequently. He has marked processing difficulty and poor short term memory. PLAN: I will go ahead and continue to gradually increase his Seroquel to try to decrease the delusional system that is present. I will bring it from 50 mg 4 times a day to 100 mg 3 times a day. Monitor for risk, benefits, sedation, EPS and tardive dyskinesia. We will discharge to the least restrictive environment when psychiatrically stable. GARRETT ERWIN MD CM:PNTRANS [id number] 1023 GARRETT ERWIN MD 07/02/18 1622 interface
--- NOTE | ~2018-06-26 | PR ---
[place], [place] PROGRESS NOTE NAME: JUSTIN MANLEY UNIT #: [id number] ROOM: 309 DOCTOR: GARRETT ERWIN MD BIRTHDATE: [birth year] DOS: 07/01/2018 INTERVAL NOTE CHIEF COMPLAINT: "Oh, hi doctor is your name Junito." SUMMARY OF THE VISIT: The patient was interviewed as he was walking up and down the hallway with one of the nurses and then later as he was sitting in the dining area. He remained relatively calm, very forgetful and perseverative. The minute somebody left the room, he was immediately calling out. He continues to be somewhat delusional. He has not been striking out with the vigor that he had previously, nor is he exhibiting any side effects from the medicines themselves. I see no sedation, somnolence or extrapyramidal symptoms. MENTAL STATUS: He remains alert and oriented to self, possibly place, not time. Mood does seem to be trending towards euthymia. Affect is more appropriate. There is no sandy or hypomania. There is still a delusional system present. Short-term memory is poor. PLAN: I will try to simplify his regimen. I will discontinue both the Vistaril and the Cogentin trying to lessen the amount of meds that he is taking while simultaneously increasing the Seroquel to 50 mg 4 times daily. We will monitor risk, benefit, engage in individual and silva milieu activity, returning to the least restrictive environment when psychiatrically stable. GARRETT ERWIN MD CM:PNTRANS [id number] [id number] GARRETT ERWIN MD 07/01/18 1306 interface
--- NOTE | ~2018-06-26 | PR ---
[place], [place] PROGRESS NOTE NAME: JUSTIN MANLEY UNIT #: [id number] ROOM: 309 DOCTOR: KENZIE MONTANEZ CNP BIRTHDATE: [birth year] DOS: 06/28/2018 CHIEF COMPLAINT: Hi there! SUMMARY OF THE VISIT: The patient was interviewed as he sat in the dining area. He reports that he did not sleep last night. He reports that he did not eat breakfast; however, staff reports that he ate very well this morning. He denies feeling anxious or irritable. Staff reports that the Seroquel 12.5 has helped some; however, he continues still to try to get out of his chair and is requiring one-on-one. He is not sleeping at night. I will plan to increase the Seroquel to see if this improves symptoms. MENTAL STATUS EXAMINATION: He is alert and oriented to self only. He is pleasant and cooperative with me. There are no signs of delusions or paranoia. No auditory or visual hallucinations. No sandy or hypomania noted. He does not appear to be depressed or anxious. PLAN: Increase Seroquel to 25 mg 3 times a day to aid in resolving his symptoms and to aid in sleep. We will continue to engage the patient in individual and silva milieu activity. Continue fall and safety precautions. Plan to return the patient to the least restrictive environment once he is considered psychiatrically stable. Kenzie Montanez CNP CM:PNTRANS [id number] KENZIE MONTANEZ CNP 07/30/18 0836 interface
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
--- NOTE | ~2018-06-26 | PR ---
[place], [place] [facility]GRESS NOTE [id number] #: [id number] ROOM: 309 DOCTOR: GARRETT ERWIN MD BIRTHDATE: [birth year] DOS: 07/03/2018 INTERVAL NOTE CHIEF COMPLAINT: "Oh here you are, good morning." SUMMARY OF THE VISIT: The patient was interviewed in the dining room where he was finishing eating his breakfast, which consisted of a banana at the time that I interviewed him. He was bright and cheerful and shook my hand on multiple occasions. He was very confused, however, and had a great deal of word finding difficulty and tended to derail mid sentence, most of his responses tended to be nonsensical and did not always match the question being asked of him. Nurses report to me that yesterday he had a very good day into the evening, but at night he struggled with sleep and was up and down through most of the night. Some of this per their report is a fear of being left alone and he does much better when he is with some body, especially if that person is touching his arm or shoulder, which gives him some significant consolation. MENTAL STATUS: He is alert and oriented to person, unclear place, certainly not time. Mood does seem to be relatively euthymic. Affect appropriate. There is no sandy or hypomania. No gross psychosis. He does process slowly and short term memory continues to be problematic. PLAN: I will go ahead and order trazodone 150 mg at bedtime p.r.n. for sleep. I will also see if we can utilize a weighted blanket or some other nonpharmacologic intervention to give him some comfort and avoid using PRNs with the use of something such as this. We will continue to engage in individual and silva milieu activity, returning to the least restrictive environment when psychiatrically stable. GARRETT ERWIN MD CM:PNTRANS [id number] GARRETT ERWIN MD 07/04/18 0639 interface
--- NOTE | ~2018-06-26 | PR ---
[place], [place] PROGRESS NOTE NAME: JUSTIN MANLEY UNIT #: [id number] ROOM: 309 DOCTOR: KENZIE MONTANEZ CNP BIRTHDATE: [birth year] DOS: 07/05/2018 CHIEF COMPLAINT: "Come here." SUMMARY OF THE VISIT: The patient was interviewed as he sat in the hallway by the nurse's station. He was pleasant and calm at this time. No agitation or irritability noted. He did engage in conversation with me. He reports that he slept well last night. He reports that he feels good. Staff reports that yesterday the patient had escalating behaviors in the afternoon and was given a p.r.n. Ativan, which was effective. We will continue to monitor for increasing afternoon agitation. We may need to increase his Seroquel dose. MENTAL STATUS EXAMINATION: He is alert and oriented to self. No overt sandy or hypomania noted. No delusions or paranoia noted. No auditory or visual hallucinations noted. His mood is calm at this time. His affect is congruent with his mood. PLAN: We will continue medications as prescribed, may need to increase the Seroquel to 150 mg 3 times a day if the patient continues to exhibit increasing behaviors with agitation. We will continue to engage the patient in individual and silva milieu activity. Continue fall and safety precautions. Plan to return the patient to the least restrictive environment once he is considered psychiatrically stable. Kenzie Montanez CNP CM:PNTRANS [id number] KENZIE MONTANEZ CNP 07/06/18 0817 interface
--- NOTE | ~2018-06-26 | PR ---
[place], [place] PROGRESS NOTE [id number] UNIT #: [id number] ROOM: 309 DOCTOR: KENZIE MONTANEZ CNP BIRTHDATE: [birth year] DOS: 07/06/2018 CHIEF COMPLAINT: "Hello, hello." SUMMARY OF VISIT: The patient was interviewed as he sat in the recliner in the quiet room. He continues to yell out this morning. Staff reports that the patient with increased behaviors yesterday, constant yelling out. He did sleep 6 hours last night. MENTAL STATUS EXAMINATION: He is alert and oriented to self. No sandy or hypomania. No paranoia or delusions noted. No auditory or visual hallucinations noted. His mood is agitated. Affect congruent with mood. His speech is clear. PLAN: I will increase the patient's Seroquel to 125 mg 3 times a day because this has helped with his behaviors. He is sleeping better with trazodone 150 mg at bedtime, so we will continue this medication. Continue fall and safety precautions. Continue to encourage the patient to engage in individual and silva milieu activity. Plan to return the patient to the least restrictive environment once psychiatrically stable. Kenzie Montanez CNP CM:PNTRANS [phone] KENZIE MONTANEZ CNP 07/06/18 1122 interface
--- NOTE | ~2018-06-26 | PR ---
[place], [place] PROGRESS NOTE NAME: JUSTIN MANLEY UNIT #: [id number] ROOM: 309 DOCTOR: KENZIE MONTANEZ CNP BIRTHDATE: [birth year] DOS: 06/29/2018 CHIEF COMPLAINT: "Hey, come here, let me see you." SUMMARY OF THE VISIT: The patient was interviewed as he was sitting in the dining area. He reports that he slept last night. He reports that he did not eat breakfast; however, staff reports that his appetite has been good. He continues to require one-on-one. However, last night he did sleep 6 hours. He seems to be tolerating Seroquel 25 mg 3 times a day without side effects. Staff did have to medicate him last evening with the p.r.n. Ativan, which was effective. His anxiety and agitation seem to be minimal as long as he is one-on-one with staff. MENTAL STATUS EXAMINATION: He is alert and oriented to himself. He was pleasant and cooperative with me. No signs of sandy or hypomania. No paranoia or delusions noted. No auditory or visual hallucinations noted. His mood seems to be euthymic. No agitation or aggression noted at this time. PLAN: I will increase the Seroquel to 25 mg b.i.d. and then 50 mg at bedtime to hopefully alleviate the increased agitation in the evenings. We will continue to engage the patient in individual and silva milieu activity, continue fall and safety precautions and plan to return the patient to the least restrictive environment when psychiatrically stable. Kenzie Montanez CNP CM:PNTRANS [phone] KENZIE MONTANEZ CNP 06/29/181839 interface
--- NOTE | ~2018-06-26 | PR ---
[place], [place] PROGRESS NOTE NAME: JUSTIN MANLEY UNIT #: [id number] ROOM: 309 DOCTOR: GARRETT ERWIN MD BIRTHDATE: [birth year] DOS: 06/30/2018 CHIEF COMPLAINT: "Hey, can you get me out of here." SUMMARY OF THE VISIT: The patient was interviewed as he was sitting in the dining area, watching television. He engaged readily in very confused conversation and tended to ramble from topic to topic. He could not tell me how long he had been here nor does he seem to recognize me from my multiple interactions with him over time. MENTAL STATUS: He is alert and oriented to self. He is unclear if it is place, certainly not time. Mood does seem to be rather labile and he does tend to be disjointed and fragmented in his thinking. It is hard for him to form a complete sentence without derailing. Short term memory continues to be problematic. PLAN: I will go ahead and increase his Seroquel to 50 mg 3 times daily to attempt to stabilize his mood and decrease his impulsivity. We will engage in individual and silva milieu activity, returning then to the least restrictive environment when psychiatrically stable. GARRETT ERWIN MD CM:PNTRANS 8 [phone] GARRETT ERWIN MD 06/30/1828 interface
[~2018-06-26 19:14] MED LIST changes: +Depakote ER500 MG PO; +LACTULOSE20 GM/30 M PO; +QUETIAPINE FUMA25 MG PO; +REMERON SOLTAB15 MG PO; +RIVASTIGMINE TAR3 M1 PO
[2018-06-26] MEDS ORDERED: ATIVAN0.5 MG PO (20:22)
[2018-06-26] MEDS ORDERED: POTASSIUM CHLO20 ME3 PO (20:30)
[2018-06-26] MEDS ORDERED: VISTARIL50 MG PO (20:34)
[2018-06-26] MEDS ORDERED: COGENTIN0.5 MG PO (20:41)
[2018-06-26] MEDS ORDERED: [UNRECOGNIZED DRUG - OTHER] PO (20:42)
[2018-06-26] MEDS ORDERED: Motrin,Rufen800 MG PO (20:44)
[2018-06-26] MEDS ORDERED: LACTULOSE10 GM/151 PO (20:48)
[2018-06-26] MEDS ORDERED: CALMOSEPTINE O3.5 GM T (20:55)
[2018-06-26 21:17] VITALS: BP 134/82
[2018-06-27 07:23] VITALS: BP 132/69
[2018-06-27 08:25] LABS: BASO % 0.8 % (0.0-1.0); EOS # 0.1 10*3/uL (0.0-0.4); HEMATOCRIT 40.7 % (42.0-52.0); HEMOGLOBIN 13.8 g/dl (14.0-18.0); LYMPH # 1.8 10*3/uL (1.3-4.4); LYMPH % 35.4 % (27.0-41.0); MEAN CELL VOLUME 96.9 fl (80.0-94.0); MEAN CORPUSCULAR HGB 32.9 pg (27.0-31.0); MEAN CORPUSCULAR HGB CONC 33.9 g/dl (33.0-37.0); MEAN PLATELET VOLUME 9.3 fl (9.6-12.3); MONO # 0.5 10*3/uL (0.1-1.0); MONO % 10.4 % (3.0-9.0); NEUT # 2.7 10*3/uL (2.3-7.9); NEUT % 52.2 % (47.0-73.0); PLATELET COUNT AUTOMATED 246 10*3/uL (130-400); RED CELL DISTRI WIDTH 13.6 % (0-14.5); WHITE BLOOD COUNT 5.1 10*3/uL (4.8-10.8)
[2018-06-27 08:39] VITALS: BP 132/69
[2018-06-27 09:04] LABS: ALBUMIN 3.6 gm/dl (3.1-4.5); BUN 9 mg/dl (7-24); CHLORIDE 104 mmol/L (98-107); CHOLESTEROL 183 mg/dL (<200); CREATININE 0.72 mg/dL (0.70-1.30); HDL CHOLESTEROL 38 mg/dl (40-60); LDL CHOLESTEROL 121 mg/dL (9-159); POTASSIUM 3.4 mmol/L (3.5-5.1); SGOT/AST 22 IU/L (3-35); SGPT/ALT 25 U/L (12-78); SODIUM 138 mmol/L (136-145); TOTAL PROTEIN 7.9 gm/dL (6.4-8.2); TRIGLYCERIDES 121 mg/dl (<150); VLDL CHOLESTEROL 24 mg/dL (6-40)
[2018-06-27 09:13] LABS: ALKALINE PHOSPHATASE 69 U/L (45-117)
[2018-06-27 09:26] LABS: VITAMIN D, 25-HYDROXY 22.6 ng/mL (30-100)
[2018-06-27 19:30] VITALS: BP 126/60
[2018-06-28 07:31] VITALS: BP 150/87
[2018-06-28 19:12] VITALS: BP 116/77
[2018-06-29 07:01] LABS: BUN 7 mg/dl (7-24); CHLORIDE 102 mmol/L (98-107); CREATININE 0.92 mg/dL (0.70-1.30); POTASSIUM 3.5 mmol/L (3.5-5.1); SODIUM 139 mmol/L (136-145)
[2018-06-29 07:26] VITALS: BP 130/68
[2018-06-29 19:42] VITALS: BP 121/58
[2018-06-30 07:19] VITALS: BP 123/65
[2018-06-30 20:10] VITALS: BP 114/65
[2018-07-01 07:40] VITALS: BP 112/58
[2018-07-01 20:23] VITALS: BP 102/56
[2018-07-02 07:40] VITALS: BP 122/69
[2018-07-02 20:00] VITALS: BP 118/80
[2018-07-03 08:08] VITALS: BP 109/66
[2018-07-03 20:00] VITALS: BP 116/72
[2018-07-04 07:50] VITALS: BP 119/65
[2018-07-04 19:50] VITALS: BP 114/78
[2018-07-05 08:15] VITALS: BP 129/52
[2018-07-05 19:51] VITALS: BP 102/63
[2018-07-06 07:59] VITALS: BP 131/71
[2018-07-06 20:00] VITALS: BP 116/62
[2018-07-07 07:15] VITALS: BP 121/69
[2018-07-07 19:40] VITALS: BP 124/71
[2018-07-08 07:33] VITALS: BP 128/69
[2018-07-08] MEDS ORDERED: QUETIAPINE FUM100 M3 PO (08:44)
[2018-07-08] MEDS ORDERED: LACTULOSE20 GM/30 M PO (08:44)
[2018-07-08] MEDS ORDERED: RIVASTIGMINE TAR3 M1 PO (08:44)
[2018-07-08] MEDS ORDERED: MEMANTINE HCL10 MG PO (08:44)
[2018-07-08] MEDS ORDERED: QUETIAPINE FUMA25 MG PO (08:44)
[2018-07-08] MEDS ORDERED: TRAZODONE150 MG PO (08:44)
== END 2018-07-08 14:07 | DRG 883 ==
LOC: 3N 19:14 → EDHOLD 19:14 → 3N 20:18
PROVIDERS: Internal Medicine; Nurse Practitioner Women's Health; ADMIT Psychiatry & Neurology Psychiatry
DX: F63.81 Intermittent explosive disorder (principal); F02.81 Dementia in other diseases classified elsewhere, unspecified severity, with behavioral disturbance; G30.9 Alzheimer's disease, unspecified; G40.909 Epilepsy, unspecified, not intractable, without status epilepticus; F25.9 Schizoaffective disorder, unspecified; I10 Essential (primary) hypertension; E78.1 Pure hyperglyceridemia; F41.1 Generalized anxiety disorder; E55.9 Vitamin D deficiency, unspecified; E78.5 Hyperlipidemia, unspecified; J45.20 Mild intermittent asthma, uncomplicated; H40.9 Unspecified glaucoma; Z79.899 Other long term (current) drug therapy